=== PATIENT | male | born 1960 | race Caucasian/White ===

== ENCOUNTER 2019-04-22 12:31 | Inpatient (IN) ==
--- OUTSIDE RECORDS SUMMARY | 2019-04-22 12:34 | External Medical Summary | Continuity of Care Document ---
:1960 Author Name Aris Helton Address Unavailable Unavailable , Care Team Providers Name Role Phone Joseph Helton Unavailable [email or web address] Jessy DODD Unavailable Unavailable Unavailable Unavailable Unavailable Problems Chronic reflux esophagitis (530.11) (K21.0) Ankylosing spondylitis (720.0) (M45.9) High risk medication use (V58.69) (Z79.899) Hyperlipidemia (272.4) (E78.5) Lyme disease (088.81) (A69.20) Allergies and Adverse Reactions No Known Drug Allergies (Allergy) Medications Diclofenac Sodium 75 MG Oral Tablet Martina yed Release; TAKE ONE BY MOUTH TWICE DAILY Danie Ruiz Start: 27-Apr-2014 Quantity: 180 Refills: 1 predniSONE 5 MG Oral Tablet; TAKE ONE TABLET BY MOUTH EVERY DAY Danie Ruiz Start: 20-Aug-2012 Quantity: 90 Refills: 0 Cyclobenzaprine HCl - 10 MG Oral Tablet; TAKE 1 TABLET AT BE DTIME NEEDED. Refills: 0 raNITIdine HCl - 300 MG Oral Tablet; TAKE 1 TABLET ENEDINA LY AT BEDTIME. Danie Ruiz Quantity: 90 Refills: 3 Omeprazole 20 MG Oral Capsule Delayed Re lease; TAKE ONE CAPSULE BY MOUTH ONCE DAILY IN THE MORNING 30 MINUTES BEFOREBREAKFAST Danie Ruiz Start: 05-Sep-2013 Quantity: 90 Refills: 1 Procedures Procedures not documented Immunizations Immunizations not documented Family History Mother Family history of Leukemia (V16.6) Status: Active Father Family history of Rheumatoid Arthritis Status: Active Social History - Smoking Status Former smoker Plan of Treatment Planned Observations Planned Goals not documented Results No Known Results Results not documented
[2019-04-22] MEDS ORDERED: HEPARIN (PORCINE) 1000 UNIT/ML 10 ML (CATH LAB USE ONLY) ONE (12:36)
[2019-04-22] MEDS ORDERED: NiCARDipine HCL INJ 2.5 MG/ML 10 ML AMP ONE (12:36)
[2019-04-22] MEDS ORDERED: fentaNYL citrate 100 MCG/2 ML VIAL ONE (12:36)
[2019-04-22] MEDS ORDERED: MIDAZOLAM HCL 1 MG/ML 2ML VIAL ONE ×2 (12:37→13:33)
[2019-04-22] MEDS ORDERED: NITROGLYCERIN/D5W 100MCG/ML 20ML SYR ONE (12:37)
[2019-04-22] MEDS ORDERED: fentaNYL citrate 100 MCG/2 ML VIAL IV STA (12:38)
[2019-04-22] MEDS ORDERED: TICAGRELOR 90 MG TAB PO ONE (12:39)
[2019-04-22] MEDS ORDERED: HEPARIN IV BOLUS 5,000 UNITS in SYRINGE 0 ML IV ONE (12:39)
[2019-04-22] MEDS ORDERED: HEPARIN SOD 5,000 UNIT/0.5 ML VIAL ONE (12:44)
[2019-04-22] MEDS ORDERED: SODIUM CHLORIDE 0.9% 500 ML IV SCH (12:45)
--- NOTE | 2019-04-22 12:58 | XRay Report ---
XR chest 1V portable HISTORY: Atypical Chest pain COMPARISON: None. FINDINGS: The cardiac silhouette is borderline enlarged. The lungs are clear. No pleural effusions. N o pneumothorax. No evidence for pulmonary edema. IMPRESSION: Borderline cardiomegaly. Otherwise, no acute process within the chest. Electronically signed by: Arun Colon M.D. 04/22/2019 12:57 PM
[2019-04-22 13:00] LABS: Basophils # (auto) 0.02 K/uL (0-0.2); Basophils % (auto) 0.2 %; Eosinophils # (auto) 0.04 K/uL (0-0.5); Eosinophils % (auto) 0.5 %; Hematocrit (blood only) 42.2 % (42-52); Hemoglobin 14.5 g/dL (14.0-18.0); Immature Granulocytes # (auto) 0.03 K/uL (0.00-0.02); Immature Granulocytes % (auto) 0.3 %; Lymphocytes # (auto) 1.29 K/uL (1.2-3.4); Lymphocytes % (auto) 14.8 %; Mean Corpuscular Hgb Conc 34.4 g/dL (32-36); Mean Corpuscular Volume 90.4 fL (80-100); Mean Platelet Volume 9.2 fL (7.4-10.4); Monocytes # (auto) 0.65 K/uL (0.11-0.59); Monocytes % (auto) 7.5 %; Neutrophils # (auto) 6.68 K/uL (1.4-6.5); Neutrophils % (auto) 76.7 %; Platelet Count 193 K/uL (130-400); RDW Coefficient of Variation 13.4 % (11.5-14.5); RDW Standard Deviation 43.9 fL (36.4-46.3); Red Blood Count 4.67 M/uL (4.7-6.1); White Blood Count 8.71 K/uL (4.8-10.8)
[2019-04-22] MEDS ORDERED: ATROPINE SULFATE 0.1 MG/ML 10ML SYR IV ONE (13:01)
[2019-04-22 13:14] LABS: INR 1.1 (0.9-1.1); Partial Thromboplastin Ratio 0.8; Partial Thromboplastin Time 21.4 Seconds (21.0-31.0); Prothrombin Time 10.9 Seconds (9.0-12.0)
[2019-04-22] MEDS ORDERED: EPTIFIBATIDE 0.75 MG/ML 75MG VIAL (CATH LAB USE ONLY) ONE (13:14)
[2019-04-22] MEDS ORDERED: EPTIFIBATIDE 2 MG/ML 10 ML VIAL (CATH LAB USE ONLY) ONE (13:14)
[2019-04-22 13:19] LABS: Alanine Aminotransferase 27 U/L (12-78); Albumin Level 3.7 gm/dl (3.4-5.0); Aspartate Aminotransferase 20 U/L (15-37); Blood Urea Nitrogen 13 mg/dl (7-18); Calcium 9.1 mg/dl (8.5-10.1); Carbon Dioxide 19 mmol/L (21-32); Chloride 107 mmol/L (98-107); Creatinine Clr Calc Pharmacy 62.6 ml/min; Est GFR (African American) 60.4; Est GFR (Non-African American) 52.1; Glucose 161 mg/dl (70-99); Lipase 102 U/L (73-393); Potassium 4.6 mmol/L (3.5-5.1); Sodium 143 mmol/L (136-145)
[2019-04-22 13:30] LABS: Albumin Globulin Ratio 1.2 (0.9-2); Alkaline Phosphatase 85 U/L (45-117); Bilirubin,Total 0.7 mg/dl (0.2-1); Creatine Kinase 67 U/L (39-308); Creatine Kinase MB < 1.0 ng/ml (0.5-3.6); Globulin 3.1 gm/dl (2.5-4.0); Total Protein 6.8 gm/dl (6.4-8.2); Troponin I < 0.015 ng/ml (0-0.045)
[2019-04-22] MEDS ORDERED: SODIUM CHLORIDE 0.9% 1000ML 1,000 ML IV SCH (14:30)
[2019-04-22] MEDS ORDERED: EPTIFIBATIDE BOLUS/DRIP IV STA (14:30)
[2019-04-22] MEDS ORDERED: ONDANSETRON INJ 2 MG/ML 2 ML VIAL IV PRN (14:30)
--- NOTE | 2019-04-22 14:39 | Pre Anesthesia Assessment ---
Date of Service April 22, 2019 Pre Sedation Assessment Vital Signs Temp Pulse Resp BP Pulse Ox 04/22/19 12:54 99 04/22/19 12:35 98.2 F 63 36 H 148/97 H 99 Cardiovascular RRR, no murmur, no edema Respiratory normal respiratory effort, lungs clear to auscultation Pre-Sedation Airway Assessment Smoking Status: Former smoker Mallampati Class: III ASA: ASA3 Procedure Planning Contraindications for Sedation: none Current Medications Reviewed: Yes Notes The planned sedation has been discussed with the patient. Informed Consent was obtained. I have identified the patient, determined the appropriateness of sedation and have assessed the patient immediately prior to the procedure. All medicine(s) and interventions are by my order.
--- NOTE | 2019-04-22 14:39 | Post Anesthesia Assessment ---
Date of Service April 22, 2019 Post Sedation Assessment Vital Signs Temp Pulse Resp BP Pulse Ox 04/22/19 12:54 99 04/22/19 12:35 98.2 F 63 36 H 148/97 H 99 Recovery Score Activity: Moves 4 extremities Respiration: Deep Breath/Cough Circulation: +/-20% PreAnes Value Consciousness: Fully Awake Oxygen Saturation: O2 needed for >90% Discharge Sedation Level of Care: Fast Track Phase II Post Sedation Plan On clinical assessment, the patient appears to have tolerated the sedation without complications. Patient is recovering as anticipated. Patient will continue to be monitored by nursing and may be discharged when sedation discharge criteria are met per below protocol. Upon Completions of procedure and additional 15 minutes continue every 5 minute vital signs and the P.A.R. score; then discharge to a Phase I or Fast Track to Phase II per the following guidelines: * Discharge Patient to appropriate Phase II area if PAR is 8 or greater or return to pre- procedure baseline. The post - procedure orders will be as directed. * If PAR score is less than 8 or not return to pre-procedure baseline then patient will follow Phase I monitoring till PAR is reached for Phase II. The Phase I may be done in procedure room or may call to secure a Phase I area. * If naloxone or flumazenil are used for reversal, hold in Phase I for continued monitoring from when last reversal dose was given for a minimum of 60 minutes or longer pending the nurse and/or physician discretion of patient condition before discharge to Phase II. Please call the Sedation Physician to re-evaluate and complete post-note for discharge to Phase II area. Do NOT discharge from procedure sedation or Phase 1 until post- sedation evaluation note is complete by procedure /sedation MD Sedation Discharge Instructions to be given to the patient at discharge to home.
--- NOTE | 2019-04-22 14:51 | Cardiac Catheterization ---
[facility] Data: Executive Consultant Cardiac Status Clinical evaluation leading to the procedure CAD Presenation: STEMI Anginal Classification: CCS IV Heart Failure: No Cardiogenic Shock within 24 Hours: No Cardiac Arrest within 24 Hours: No Imaging Studies Past 6 Months: Yes Stress Studies Past 6 Months: Yes Stress Echocardiogram: Yes - Negative Diagnostic Physicians Name: Leonardo Wolff MD Status: Emergency Closure Device Percutaneous Entry Location: Radial Closure Device: Radial Band Recommendations: PCI without planned CABG PCI Indication: Immediate PCI for STEMI First Noted: First EKG Lesion Segment Name: Mid RCA Culprit Artery: Yes Stenosis Prior to Rx (%): 99 Chronic Total Occlusion: No IVUS: No FFR: No Pre-Procedure MARYAM Flow: 1 Previously Treated Lesion: No Lesion Complexity: Non-High/Non-C Lesion Length (mm): 20 Thrombus Present: Yes Bifurcation Lesion: No Guidewire Across Lesion: Stenosis Post-Procedure (%): 0 Post-Procedure MARYAM Flow: 3 Devices(s) Deployed: Yes Yes Intraprocedure Events Significant Disection: No Perforation: No Cardiac Cath Procedure Full Procedure Date April 22, 2019 Pre-Procedure Diagnosis Pre-Procedure Diagnosis: STEMI AUC Score AUC Score: 9 Post-Procedure Diagnosis Post-Procedure Diagnosis: Severe CAD, Successful PCI and Normal Intracardiac Pressures Procedure(s) Performed Procedure(s) Performed: Coronary Angiography, Left Heart Cath and Drug Eluting Stent Urology Nurse Leonardo Wolff MD Retort Condenser Attendant(s) Loco Estimated Blood Loss Estimated Blood Loss: 15 Medication(s) Medication(s): Clopidogrel, Fentanyl, Heparin, Lidocaine 1%, Nicardipine, Nitroglycerin and Versed Summary of Findings Indication: STEMI/Heart Alert Access: 6 Fr right radial artery Catheters: Ikari 3.5 guide, diagnostic multipurpose Findings: LAD -moderate caliber, 20-30% diffuse proximal disease, small distal vessel with 50 to 60% stenosis after takeoff of small second diagonal. 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 Gives off 3 OM's without significant disease. RCA -dominant, large caliber vessel, subtotal acute occlusion of earlymid RCA with heavy thrombus and MARYAM I distal flow LVEDP -8 -- PCI -- Antithrombotic therapy: Heparin, Integrilin, ticagrelor Procedure: RCA cannulated with Ikari 3.5 guide BMW wire passed across lesion into distal vessel Earlymid RCA lesion predilated with 2.5 compliant balloon Dilated lesion stented with 3.5 x 26 mm [place] drug-eluting stent Stent post-dilated with 3.75 and 4.0 noncompliant balloon Poor distal reflow in the setting of heavy thrombus burden. IC Integrilin and vasodilators administered Post procedure MARYAM 3 flow, stent well expanded with minimal residual stenosis and no apparent cardiac complications. Arterial Closure: TR Summary: 1. Inferior STEMI/subtotal acute earlymid RCA occlusion 2. Small vessel non-culprit coronary artery disease -50 to 60% distal LAD 90% proximal first diagonal (<2 mm). 3. 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 Normal intracardiac filling pressure 5. Successful PCI of proximal to mid RCA with single drug-eluting stent (3.5 x 26 mm Ranjeet; postdilated with 4.0 NC). Recommendations: Admit to ICU for continued monitoring Loaded with ticagrelor 180 mg in laborer tin can Continue Integrilin for 3 hours. Continue dual-antiplatelet therapy for at least 1 year. Trend troponins until peak, Check Echo Uptitrate beta-davis/AHMET as BP allows High-dose statin Consult cardiac Rehab Hemodynamics Rest Ao:: 126/73/96 Final Ao: 85/55/69 LV: 100/8 Recommendations Recommendations: PCI without planned CABG Specimens Specimens: None Radiation Exposure (mGy) 2363 Contrast (mls) 150 Fluids (cc crystalloids) Fluids (cc crystalloids): 650 Drains Drains: None Anesthesia Moderate Procedural Complication(s) None Disposition ICU I attest to the content of the Intraoperative Record and any orders documented therein. Any exceptions are noted below.
--- NOTE | 2019-04-22 15:19 | Consultation ---
Date of Consultation April 22, 2019 Assessment & Plan (1) ST elevation (STEMI) myocardial infarction: Today patient had outpatient exercise stress echo with no reported inducible ischemia and pt able to perform exercise for 10 minutes. After stress test patient was walking down [place] and developed anterior CP, left arm pain, diaphoresis and SOB with EKG in clinic reported to show sinus rhythm with ST elevation inferior leads and leads V3-V6. In clinic had 324mg ASA and 1 SL nitro. From ER pt taken urgently to laboratory technologist. Post op day# 0 S/P PCI, 1 BRIE to RCA by Dr Wolff -Was loaded with Brilinta -Will trend troponin -Echo pending -Lipid panel in am, atorvastatin started -Aspirin daily -Metoprolol tartrate 12.5mg BID started -Lisinopril 5mg started -Cardiology consult (2) Renal insufficiency: Cr: 1.4. Baseline Cr:1.1 with GFR>60 Pt received contrast with cardiac cath -Getting 750ml IVF -Hold home diclofenac -Monitor renal functions -Avoid nephrotoxic agents when possible (3) Elevated glucose: Random glucose: 161 -A1c in am (4) Ankylosing spondylitis: -Continue prednisone -Hold Diclofenac (5) Dyslipidemia: -Lipid panel in am -Atorvastatin started (6) GERD (gastroesophageal reflux disease): -Continue PPI (7) Tobacco use: Chews snuff -Tobacco cessation encouraged DVT Prophylaxis -Ambulate Follows with Dr Dorsey for routine care Pt was seen and care coordinated with Dr Rhodes. See addendum Pt will be followed by Dr Landa starting 04/23/19 Supervising Physician Co-Signing Physician Notes I, Dr. Khoa Rhodes, have seen and examined the patient with physician real estate executive assistant and would like to comment that This is a 58 year old male with inferior wall ST-Elevation Myocardial Infarction (STEMI) Patient is s/p Percutaneous coronary intervention (PCI) of proximal to mid right coronary artery (RCA) with single drug-eluting stent Patient was loaded with with ticagrelor 180 mg in laboratory technologist and to complete Integrilin for 3 hours in total, furthering monitoring in the ICU Other post-cardiac cath recommendations of: dual-antiplatelet therapy for at least 1 year. Trend troponins until peak, Check Echo Uptitrate beta-dvais/AHMET as BP allows High-dose statin Consult cardiac Rehab Discussed alcohol and smoking cessation or reduction with patient Acute kidney injury -on IV fluids Agree with assessment and plan of other health issues as documented by physician real estate executive assistant Physical Exam General: no acute distress Eyes: extraoccular movements intact Lungs: Heart: regular rate, rhythm Abdomen: soft, nontender, positive bowels Extremities: no edema, right wrist with TR band My colleague Dr. Landa will be following the patient as hospitalist physician starting on 04/23/19 History of Present Illness Reason for Consultation: post op medical management Attending Physician: Leonardo Wolff MD History of Present Illness Pt is 58 y/o M with PMH ankylosing spondylitis, GERD, dyslipidemia, tobacco use seen in postop medical management consult s/p PCI and BRIE stent to RCA. Today patient had outpatient exercise stress echo for previous intermittent chest pain and back pain. Stress test with no reported inducible ischemia and pt able to perform exercise for 10 minutes. After stress test patient was walking down home when he developed anterior chest pain, left arm pain, diaphoresis and shortness of breath and had a EKG in clinic reported to show sinus rhythm with ST elevation inferior leads and V3-V6. In clinic patient was given 4 baby aspirin and 1 sublingual nitroglycerin and transferred to ER via EMS. Patient taken urgently to Evaporative Cooler Installer and received 1 BRIE to RCA. Postop patient reports slight chest pain with no further SOB, arm pain, or diaphoresis. Denies fever/chills, N/V/D/C, MEDINA, dizziness, syncope, vision changes, neck pain, orthopnea, palpitations, cough, sore throat, choking, otalgia, rhinorrhea, abdominal pain, paresthesias, weakness, extremity weakness, extremity edema, rashes, urinary symptoms. Allergies Allergy/AdvReac Type Severity Reaction Status Date / Time No Known Drug Allergies Allergy Unknown . Verified 04/22/19 13:10 Home Medications Home Medications Medication Instructions Recorded Confirmed Type cyclobenzaprine 10 mg PO TID PRN 04/22/19 04/22/19 History diclofenac sodium 75 mg PO BID 04/22/19 04/22/19 History omeprazole 20 mg PO QAM 04/22/19 04/22/19 History prednisone 5 mg PO DAILY 04/22/19 04/22/19 History prednisone 10 mg PO UD 04/22/19 04/22/19 History Patient History Medical History Tobacco use (Chronic) Dyslipidemia (Chronic) GERD (gastroesophageal reflux disease) (Chronic) Ankylosing spondylitis (Chronic) Surgical History No pertinent past surgical history Family History Mother Leukemia Father Coronary heart disease [place] age 62 Social History Preferred Language: Yemeni Communication Ability: Effective Beliefs That Will Affect Care: None Current Living Situation: Spouse Other Information That Helps Us Care for You: No Feels Safe at Home: Yes Safety Concerns: Feels Safe At This Time Smoking Status: Former smoker Tobacco Type: smokeless tobacco ; Cigarettes Per Day: Smoked 3ppd x 11 years, quit in ; Do You Dip or Chew Tobacco: Yes (5 cans a week) ; Second Hand Exposure: No ; Hx Alcohol Use: Yes (1 case of beer per weekend, ) Alcohol type: beer Hx Substance Use: No Review of Systems Review of Systems: All systems reviewed & are unremarkable except as noted in HPI & below Physical Exam Physical Exam: General: no distress, WDWN Head: normocephalic, atraumatic Eyes: PERRL, EOM's intact, conjunctiva non-injected, anicteric ENT: normal inspection external ears, nose, mucous membranes moist Neck: supple, trachea midline Lungs: clear, no respiratory distress, no wheezing/rhonchi/rales CV: RRR, no murmur, no pretibial edema Abd: normal BS, soft, non-tender Ext: no cyanosis, no calf tenderness; right wrist with radial compression band in place, ROM fingers intact, fingers with sensation to light touch intact Neuro: A&O x 3, no focal deficits noted, normal affect Skin: warm, dry Results & Data Vital Signs (Past 12 Hours) Vital Signs Temp Pulse Pulse Resp BP BP Pulse Ox 04/22/19 14:40 52 L 14 04/22/19 14:39 36.7 C 59 L 18 96/65 L 98 04/22/19 14:30 36.7 C 51 L 58 L 26 H 96/65 L 95 04/22/19 14:20 51 L 14 04/22/19 14:13 50 L 18 96/65 L 04/22/19 14:10 54 L 14 04/22/19 14:09 52 L 5 L 04/22/19 12:54 99 04/22/19 12:41 65 18 100 04/22/19 12:38 71 24 144/95 H 100 04/22/19 12:35 36.8 C 63 36 H 148/97 H 99 Laboratory Results Short CBC 04/22/19 Range/Units 12:41 WBC 8.71 (4.8-10.8) K/uL Hgb 14.5 (14.0-18.0) g/dL Hct 42.2 (42-52) % Plt Count 193 (130-400) K/uL BMP 04/22/19 12:41 Sodium 143 Potassium 4.6 Chloride 107 Carbon Dioxide 19 L BUN 13 Creatinine 1.48 H Glucose 161 H Calcium 9.1 Cardiac Enzymes 04/22/19 Range/Units 12:41 Total Creatine Kinase 67 (39-308) U/L CK-MB (CK-2) < 1.0 (0.5-3.6) ng/ml Troponin I < 0.015 (0-0.045) ng/ml Liver Function 04/22/19 Range/Units 12:41 Total Bilirubin 0.7 (0.2-1) mg/dl AST 20 (15-37) U/L ALT 27 (12-78) U/L Alkaline Phosphatase 85 (45-117) U/L Albumin 3.7 (3.4-5.0) gm/dl Diagnostic Findings CXR: IMPRESSION: Borderline cardiomegaly. Otherwise, no acute process within the chest. ECG Rhythm: sinus rhythm Findings: + ST elevation (II, III, aVF, V3-V6) (1) ST elevation (STEMI) myocardial infarction Involved coronary artery: unspecified coronary artery Qualified Code(s): I21.3 - ST elevation (STEMI) myocardial infarction of unspecified site
[2019-04-22] MEDS: EPTIFIBATIDE 75 MG/100 ML VIAL IV SCH ×2 (15:24→18:18)
[2019-04-22] MEDS ORDERED: ICU PROTOCOL FOR HYPERGLYCEMIA PRN (15:32)
[2019-04-22] MEDS ORDERED: PERFLUTREN LIPID MICROSPHERE (DEFINITY) IV ONE (15:47)
--- NOTE | 2019-04-22 15:48 | Critical Care Consultation ---
Date of Consultation April 22, 2019 Assessment & Plan (1) ST elevation (STEMI) myocardial infarction: Stated post drug-eluting stent in the RCA Continue with aspirin and Brilinta. Monitor for any signs of bleeding. Cardiology on board. Monitor EKGs. Present on Admission?: Yes (2) S/P right coronary artery (RCA) stent placement: (3) Alcohol abuse: Patient is a heavy drinker. Counseling was given to stop drinking. (4) GERD (gastroesophageal reflux disease): Continue with pantoprazole. (5) Renal insufficiency: Creatinine 1.48 to the time of presentation. Monitor BUN and creatinine Strict in and out History of Present Illness Reason for Consultation: STEMI Attending Physician: Leonardo Wolff MD History of Present Illness 58-year-old male with past medical history of ankylosing spondylitis taking prednisone 5 mg for the last approximately 10 to 15 years, daily alcohol use comes to the hospital from physician's office where he had echo stress test done which apparently was normal but after the test he started having chest pain diaphoresis shortness of breath. Was found to have ST elevation in inferior leads. Patient went to Manufacturer Representative and drug-eluting stent was placed in RCA. Patient is seen status post cardiac cath in the ICU. Denies any shortness of breath, no dizziness, no headache, no nausea, no vomiting. Chest pain is improved. No diarrhea, no hematuria, no hematochezia, no dysuria. No fever or chills. Family history: Leukemia in mother, heart problems in father Social history: Greater than 38-[id number]-pihr smoking history quit approximately 34 years ago, heavy alcohol use 6 cans of beer approximately other daily basis, denies any illicit drug use Allergies Allergy/AdvReac Type Severity Reaction Status Date / Time No Known Drug Allergies Allergy Unknown . Verified 04/22/19 13:10 Home Medications Home Medications Medication Instructions Recorded Confirmed Type cyclobenzaprine 10 mg PO TID PRN 04/22/19 04/22/19 History diclofenac sodium 75 mg PO BID 04/22/19 04/22/19 History omeprazole 20 mg PO QAM 04/22/19 04/22/19 History prednisone 5 mg PO DAILY 04/22/19 04/22/19 History prednisone 10 mg PO UD 04/22/19 04/22/19 History Patient History Medical History Tobacco use (Chronic) Dyslipidemia (Chronic) GERD (gastroesophageal reflux disease) (Chronic) Ankylosing spondylitis (Chronic) Surgical History No pertinent past surgical history Family History Mother Leukemia Father Coronary heart disease [place] age 62 Social History Preferred Language: Somali Communication Ability: Effective Beliefs That Will Affect Care: None Current Living Situation: Spouse Other Information That Helps Us Care for You: No Feels Safe at Home: Yes Safety Concerns: Feels Safe At This Time Smoking Status: Former smoker Tobacco Type: smokeless tobacco ; Cigarettes Per Day: Smoked 3ppd x 11 years, quit in ; Do You Dip or Chew Tobacco: Yes (5 cans a week) ; Second Hand Exposure: No ; Hx Alcohol Use: Yes (1 case of beer per weekend, sun-sun) Alcohol type: beer Hx Substance Use: No Review of Systems Review of Systems: All systems reviewed & are unremarkable except as noted in HPI & below Physical Exam Physical Exam: Constitutional: No acute distress HEENT: EOMI, PERRLA Respiratory system: Good air entry bilaterally, no wheeze, no rhonchi, no crackles CVS: S1-S2 positive, no murmurs or gallops, bradycardia Abdomen: Soft, nontender, nondistended, positive bowel sounds x4 Extremities: +2 pulses bilaterally radialis/ dorsalis pedis, no edema, no cyanosis Neuro: Awake alert oriented x3 Psych: Normal mood and affect G/U: No Light Lymphatic: no cervical or axillary lymphadenopathy Results & Data Vital Signs (Past 12 Hours) Vital Signs Temp Pulse Pulse Resp BP BP Pulse Ox 04/22/19 14:40 52 L 14 04/22/19 14:39 36.7 C 59 L 18 96/65 L 98 04/22/19 14:30 36.7 C 51 L 58 L 26 H 96/65 L 95 04/22/19 14:20 51 L 14 04/22/19 14:13 50 L 18 96/65 L 04/22/19 14:10 54 L 14 04/22/19 14:09 52 L 5 L 04/22/19 12:54 99 04/22/19 12:41 65 18 100 04/22/19 12:38 71 24 144/95 H 100 04/22/19 12:35 36.8 C 63 36 H 148/97 H 99 Laboratory Results 04/22/19 12:41 04/22/19 12:41 PG Care Time/CCT Total # of Minutes Spent Total Time Spent with Patient: Total time spent is greater than 50% in coordination of care (as documented) at patient's floor/unit and/or counseling patient: (1) ST elevation (STEMI) myocardial infarction Involved coronary artery: unspecified coronary artery Qualified Code(s): I21.3 - ST elevation (STEMI) myocardial infarction of unspecified site
--- NOTE | 2019-04-22 16:17 | Cardiology Consultation ---
Date of Consultation April 22, 2019 Assessment & Plan (1) ST elevation (STEMI) myocardial infarction: (2) S/P right coronary artery (RCA) stent placement: (3) Dyslipidemia, goal LDL below 70: Continue dual antiplatelet therapy for minimum of 6 months uninterrupted post percutaneous intervention. High intensity statin therapy added. Repeat fasting lipid panel ordered for a.m. Continue low-dose beta-davis therapy as well. TR band will be removed slowly via nursing staff over the next 90 minutes. Continue observation in the intensive care unit overnight. Consider referral to cardiac rehab at time of discharge. History of Present Illness Reason for Consultation: STEMI s/p PCI RCA Requesting Physician: Samantha ANAYA Attending Physician: Leonardo Wolff MD History of Present Illness 58-year-old patient presented for outpatient stress testing today as ordered by primary care provider. Patient has no past history of cardiac disease. He exercised on a Franck protocol completing 10 minutes of exercise with no symptoms suggestive of angina. There is no evidence of inducible ischemia. After completion of stress testing patient was in the waiting room at [facility]. He developed chest discomfort, diaphoresis, and shortness of b reath. He was evaluated in the clinic with repeat ECG demonstrating inferior lateral ST elevations. He was transferred via EMS to [facility] for urgent cardiac catheterization. Cardiac catheterization demonstrated severe proximal RCA stenosis. A drug- eluting stent was implanted without complication. Patient tolerated procedure well. Currently resting comfortably intensive care unit. Telemetry demonstrates sinus bradycardia. Hemodynamics are stable. Denies any chest discomfort at this time. Repeat echocardiogram pending. Allergies Allergy/AdvReac Type Severity Reaction Status Date / Time No Known Drug Allergies Allergy Unknown . Verified 04/22/19 13:10 Home Medications Home Medications Medication Instructions Recorded Confirmed Type cyclobenzaprine 10 mg PO TID PRN 04/22/19 04/22/19 History diclofenac sodium 75 mg PO BID 04/22/19 04/22/19 History omeprazole 20 mg PO QAM 04/22/19 04/22/19 History prednisone 5 mg PO DAILY 04/22/19 04/22/19 History prednisone 10 mg PO UD 04/22/19 04/22/19 History Patient History Medical History Tobacco use (Chronic) Dyslipidemia (Chronic) GERD (gastroesophageal reflux disease) (Chronic) Ankylosing spondylitis (Chronic) Surgical History No pertinent past surgical history Family History Mother Leukemia Father Coronary heart disease [place] age 62 Social History Preferred Language: Telugu Communication Ability: Effective Beliefs That Will Affect Care: None Current Living Situation: Spouse Other Information That Helps Us Care for You: No Feels Safe at Home: Yes Safety Concerns: Feels Safe At This Time Smoking Status: Former smoker Tobacco Type: smokeless tobacco ; Cigarettes Per Day: Smoked 3ppd x 11 years, quit in ; Do You Dip or Chew Tobacco: Yes (5 cans a week) ; Second Hand Exposure: No ; Hx Alcohol Use: Yes (1 case of beer per weekend, ) Alcohol type: beer Hx Substance Use: No Review of Systems Review of Systems: All systems reviewed & are unremarkable except as noted in HPI & below Physical Exam Physical Exam: General: NAD, AAO x3, well nourished. HEENT: Normocephalic. Atraumatic. Conjunctiva pink, no scleral icterus. Neck: No carotid bruits, the carotid upstrokes are brisk. No JVD. No HJR Heart: Regular normal S-1 and S-2 no S-3 or S-4 gallop. No murmurs or rub appreciated. PMI is not displaced. No RV heave. Lungs: Clear bilateral without rales , rhonchi, or wheeze. Abdomen: Normal bowel sounds. Soft. Nontender. No masses or organomegaly. No abdominal bruits. Extremities: No clubbing, cyanosis, or edema. Pulses: radial=2/4, Dorsalis pedis =2/4, posterior tibial=2/4. Neuro: Cranial nerves grossly intact. No focal motor deficit. Results & Data Vital Signs (Past 12 Hours) Vital Signs Temp Pulse Pulse Resp BP BP Pulse Ox 04/22/19 16:00 53 L 16 108/80 99 04/22/19 15:45 52 L 17 116/76 98 04/22/19 15:30 50 L 21 104/74 99 04/22/19 15:15 53 L 22 101/77 96 04/22/19 15:00 60 14 109/86 04/22/19 14:49 51 L 18 120/79 04/22/19 14:45 59 L 16 04/22/19 14:40 52 L 14 04/22/19 14:39 36.7 C 59 L 18 96/65 L 98 04/22/19 14:30 36.7 C 51 L 58 L 26 H 96/65 L 95 04/22/19 14:20 51 L 14 04/22/19 14:13 50 L 18 96/65 L 04/22/19 14:10 54 L 14 04/22/19 14:09 52 L 5 L 04/22/19 12:54 99 04/22/19 12:41 65 18 100 04/22/19 12:38 71 24 144/95 H 100 04/22/19 12:35 36.8 C 63 36 H 148/97 H 99 Laboratory Results Laboratory Results - last 24 hr 04/22/19 04/22/19 04/22/19 12:41 12:41 12:41 WBC 8.71 RBC 4.67 L Hgb 14.5 Hct 42.2 MCV 90.4 MCH 31.0 MCHC 34.4 RDW Std Deviation 43.9 RDW Coeff of [place] 13.4 Plt Count 193 MPV 9.2 Immature Gran % (Auto) 0.3 Neut % (Auto) 76.7 Lymph % (Auto) 14.8 [place] % (Auto) 7.5 Eos % (Auto) 0.5 Baso % (Auto) 0.2 Immature Gran # (Auto) 0.03 H Neut # (Auto) 6.68 H Lymph # (Auto) 1.29 [place] # (Auto) 0.65 H Eos # (Auto) 0.04 Baso # (Auto) 0.02 PT 10.9 INR 1.1 APTT 21.4 PTT Ratio 0.8 Sodium Potassium Chloride Carbon Dioxide Anion Gap BUN Creatinine Est Cr Clr Drug Dosing Est GFR ( Amer) Est GFR (Non-Af Amer) BUN/Creatinine Ratio Glucose POC Glucose Calcium Magnesium Total Bilirubin AST ALT Alkaline Phosphatase Total Creatine Kinase CK-MB (CK-2) CK/CKMB % Calc Troponin I Total Protein Albumin Globulin Albumin/Globulin Ratio Lipase TSH Nasal Screen MRSA (PCR) Blood Type O Negative Antibody Screen NEGATIVE 04/22/19 04/22/19 04/22/19 12:41 14:15 14:43 WBC RBC Hgb Hct MCV MCH MCHC RDW Std Deviation RDW Coeff of [place] Plt Count MPV Immature Gran % (Auto) Neut % (Auto) Lymph % (Auto) [place] % (Auto) Eos % (Auto) Baso % (Auto) Immature Gran # (Auto) Neut # (Auto) Lymph # (Auto) [place] # (Auto) Eos # (Auto) Baso # (Auto) PT INR APTT PTT Ratio Sodium 143 Potassium 4.6 Chloride 107 Carbon Dioxide 19 L Anion Gap 17.0 H BUN 13 Creatinine 1.48 H Est Cr Clr Drug Dosing 62.6 Est GFR ( Amer) 60.4 Est GFR (Non-Af Amer) 52.1 BUN/Creatinine Ratio 9.0 L Glucose 161 H POC Glucose 112 H Calcium 9.1 Magnesium 2.0 Total Bilirubin 0.7 AST 20 ALT 27 Alkaline Phosphatase 85 Total Creatine Kinase 67 CK-MB (CK-2) < 1.0 CK/CKMB % Calc TNP Troponin I < 0.015 Total Protein 6.8 Albumin 3.7 Globulin 3.1 Albumin/Globulin Ratio 1.2 Lipase 102 TSH 1.150 Nasal Screen MRSA (PCR) Pending Blood Type Antibody Screen (1) ST elevation (STEMI) myocardial infarction Involved coronary artery: unspecified coronary artery Qualified Code(s): I21.3 - ST elevation (STEMI) myocardial infarction of unspecified site
[2019-04-22] MEDS: TICAGRELOR 90 MG TAB PO SCH (20:05)
[2019-04-22] MEDS: METOPROLOL TARTRATE 25 MG TAB PO SCH (20:05)
--- NOTE | 2019-04-22 20:23 | Emergency Department Note ---
Entered by Gudelia García acting as a scribe for Constantin Winston MD History of Present Illness General Chief complaint: Heart Alert Time Seen by Provider: 04/22/19 12:35 Source: patient and EMS History of Present Illness Provider complaint: STEMI Onset (ago): hour(s) less than 1 Location: chest Radiation: non-radiation Pain Consistency: + constant Maximum Pain Intensity: 7 Relieved By: + none Exacerbated By: + movement Associated symptoms: + chest pain, + nausea/vomiting, + shortness of breath and + other (chest pain ) The patient is a 58 y/o male who presents to the emergency department via EMS for evaluation of a constant STEMI prior to arrival. EMS notes that patient had completed a stress test without issue but following had shortness of breath, nausea, vomiting, and chest pain. The patient states he has a 7/10 chest pain. EKG demonstrates ZENA inferiorly and laterally. EMS notes he had 4 nitroglycerins prior to arrival with a 144/[address] ates that the pain in his left chest. He notes he is short of breath as well but has not vomited since at [facility]. He denies any other symptoms. Home Medications Home Medications Medication Instructions Recorded Confirmed Type cyclobenzaprine 10 mg PO TID PRN 04/22/19 04/22/19 History diclofenac sodium 75 mg PO BID 04/22/19 04/22/19 History omeprazole 20 mg PO QAM 04/22/19 04/22/19 History prednisone 5 mg PO DAILY 04/22/19 04/22/19 History prednisone 10 mg PO UD 04/22/19 04/22/19 History Allergies Allergy/AdvReac Type Severity Reaction Status Date / Time No Known Drug Allergies Allergy Unknown . Verified 04/22/19 13:10 Past Med/Surg History Medical History Tobacco use (Chronic) Dyslipidemia (Chronic) GERD (gastroesophageal reflux disease) (Chronic) Ankylosing spondylitis (Chronic) Surgical History No pertinent past surgical history Family History Mother Leukemia Father Coronary heart disease [place] age 62 Social History Preferred Language: Romansh Communication Ability: Effective Beliefs That Will Affect Care: None Current Living Situation: Spouse Other Information That Helps Us Care for You: No Feels Safe at Home: Yes Safety Concerns: Feels Safe At This Time Smoking Status: Former smoker Tobacco Type: smokeless tobacco ; Cigarettes Per Day: Smoked 3ppd x 11 years, quit in ; Do You Dip or Chew Tobacco: Yes (5 cans a week) ; Second Hand Exposure: No ; Hx Alcohol Use: Yes (1 case of beer per weekend, sun-sun) Alcohol type: beer Hx Substance Use: No Review of Systems See HPI for pertinent positives & negatives. and A total of 10 systems reviewed and were otherwise negative Physical Exam Vital Signs Vital Signs - 24 hr 04/22/19 12:35 04/22/19 12:38 04/22/19 12:41 Temperature 36.8 C Temperature Source Oral Sepsis Recent Fever Within 48 Hours No Sepsis New/Unexplained Change in Mental Status No Sepsis Action Taken by Nursing No Action Required Pulse Rate 63 71 65 Pulse Rate from SpO2 Sensor 70 65 Pulse Rhythm Regular Pulse Strength Normal Respiratory Rate 36 H 24 18 Respiratory Effort / Characteristics Non-Labored Spontaneous Respiratory Depth Normal Respiratory Pattern Regular Blood Pressure 148/97 H 144/95 H Blood Pressure Mean 114 111 Blood Pressure Position Sitting Pulse Oximetry 99 100 100 Oxygen Delivery Method Nasal Cannula Oxygen Flow Rate 2 04/22/19 12:54 Temperature Temperature Source Sepsis Recent Fever Within 48 Hours Sepsis New/Unexplained Change in Mental Status Sepsis Action Taken by Nursing Pulse Rate Pulse Rate from SpO2 Sensor Pulse Rhythm Pulse Strength Respiratory Rate Respiratory Effort / Characteristics Respiratory Depth Respiratory Pattern Blood Pressure Blood Pressure Mean Blood Pressure Position Pulse Oximetry 99 Oxygen Delivery Method Room Air Oxygen Flow Rate 2 GENERAL: Awake, alert, uncomfortable-appearing, in mild distress HENT: Normocephalic, atraumatic. Oropharynx with dry mucous membranes and otherwise unremarkable. EYES: Normal conjunctiva. Sclera non-icteric. NECK: Supple. No nuchal rigidity. FROM. No JVD. RESPIRATORY: Clear to auscultation bilaterally CARDIAC: Regular rate, normal rhythm. Extremities warm and well perfused. Pulses equal. ABDOMEN: Soft, non-distended. No tenderness to palpation. No rebound or guarding. No masses. RECTAL: Deferred. MUSCULOSKELETAL: Chest examination reveals no tenderness. The back is symmetrical on inspection without obvious abnormality. There is no CVA tenderness to palpation. No joint edema. LOWER EXTREMITIES: Calves are equal size bilaterally and non-tender. No edema. No discoloration. NEURO: Normal sensorium. No sensory or motor deficits noted. SKIN: No rash or jaundice noted. Course 1236: Past medical records reviewed. The patient was evaluated in room B01. A complete history and physical exam was performed. 1251: The patient was transferred to the gold leaf laborer. 1309: I spoke with Maryan Hawkins. She will evaluate for further management. Administered Medications Metoprolol Tartrate (Lopressor) 12.[address] Stop: 05/22/19 20:59 Last Admin: 04/22/19 20:05 Dose: 12.5 mg Documented by: [id number] Ticagrelor (Brilinta) [address] Stop: 05/22/19 20:59 Last Admin: 04/22/19 20:05 Dose: 90 mg Documented by: [id number] Discontinued Medications Atropine Sulfate (Atropine Sulfate) Confirm Administered Dose 1 mg IV .STK-MED ONE Stop: 04/22/19 13:02 Last Admin: 04/22/19 15:01 Dose: Not Given Documented by: [id number] Eptifibatide (Integrilin (Gasoline Catalyst Operator Use Only)) Confirm Administered Dose 20 mg .ROUTE .STK-MED ONE Stop: 04/22/19 13:15 Last Admin: 04/22/19 15:01 Dose: Not Given Documented by: [id number] Eptifibatide (Integrilin (Gasoline Catalyst Operator Use Only)) Confirm Administered Dose 75 mg .ROUTE .STK-MED ONE Stop: 04/22/19 13:15 Last Admin: 04/22/19 15:02 Dose: Not Given Documented by: [id number] Fentanyl Citrate (Fentanyl Citrate) Confirm Administered Dose 100 mcg .ROUTE .STK-MED ONE Stop: 04/22/19 12:37 Last Admin: 04/22/19 12:52 Dose: 50 mcg Documented by: [id number] Fentanyl Citrate (Fentanyl Citrate) 50 mcg IV NOW [facility] Stop: 04/22/19 12:39 Last Admin: 04/22/19 12:53 Dose: Not Given Documented by: [id number] Heparin Sodium (Porcine) (Heparin Iv Bolus (Gasoline Catalyst Operator Use Only)) Confirm Administered Dose 10,000 units .ROUTE .STK-MED ONE Stop: 04/22/19 12:37 Last Admin: 04/22/19 15:00 Dose: Not Given Documented by: [id number] Heparin Sodium (Porcine) (Heparin Sodium (Porcine)) Confirm Administered Dose 5,000 units .ROUTE .STK-MED ONE Stop: 04/22/19 12:45 Last Admin: 04/22/19 12:53 Dose: Not Given Documented by: [id number] Heparin Sodium/Sodium Chloride (Heparin/Nss 1000 Unit/500ml Flush Bag) Confirm Administered Dose 3,000 units IV .STK-MED ONE Stop: 04/22/19 12:38 Last Admin: 04/22/19 15:00 Dose: Not Given Documented by: [id number] Sodium Chloride (Nss) 500 mls @ 999 mls/hr IV .Q31M [facility] Stop: 04/22/19 13:15 Last Infusion: 04/22/19 15:26 Dose: 0 mls/hr Documented by: [id number] Admin: 04/22/19 12:53 Dose: 999 mls/hr Documented by: [id number] Heparin Sodium (Porcine) 5,000 (units/ Syringe) 5 mls @ 10 mls/min IV ONE ONE Stop: 04/22/19 12:40 Last Admin: 04/22/19 12:54 Dose: Not Given Documented by: [id number] Sodium Chloride (Nss 1000ml) 1,000 mls @ 100 mls/hr IV .Q10H [facility] Stop: 04/22/19 21:59 Last Admin: 04/22/19 15:24 Dose: 100 mls/hr Documented by: [id number] Eptifibatide (Integrilin) 75 mg in 100 mls @ 14.784 mls/hr IV .Q6H46M [facility]; Protocol Stop: 05/22/19 14:29 Last Infusion: 04/22/19 20:01 Dose: 0 mcg/kg/min, 0 mls/hr Documented by: [id number] Cosigned by: [id number] Admin: 04/22/19 18:18 Dose: 2 mcg/kg/min, 14.8 mls/hr Documented by: [id number] Cosigned by: [id number] Infusion: 04/22/19 18:18 Dose: 2 mcg/kg/min, 14.8 mls/hr Documented by: [id number] Cosigned by: [id number] Admin: 04/22/19 15:24 Dose: 2 mcg/kg/min, 14.8 mls/hr Documented by: [id number] Cosigned by: [id number] Midazolam HCl (Versed) Confirm Administered Dose 2 mg .ROUTE .STK-MED ONE Stop: 04/22/19 12:38 Last Admin: 04/22/19 15:01 Dose: Not Given Documented by: [id number] Midazolam HCl (Versed) Confirm Administered Dose 2 mg .ROUTE .STK-MED ONE Stop: 04/22/19 13:34 Last Admin: 04/22/19 15:02 Dose: Not Given Documented by: [id number] Nicardipine HCl (Cardene) Confirm Administered Dose 25 mg .ROUTE .STK-MED ONE Stop: 04/22/19 12:37 Last Admin: 04/22/19 15:00 Dose: Not Given Documented by: [id number] Nitroglycerin/Dextrose (Nitroglycerin/D5w 100 Mcg/Ml 20ml Syringe) Confirm Administered Dose 2,000 mcg .ROUTE .STK-MED ONE Stop: 04/22/19 12:38 Last Admin: 04/22/19 15:01 Dose: Not Given Documented by: [id number] Perflutren Lipid Microsphere (Definity) 2 ml IV ONCE ONE Stop: 04/22/19 15:48 Last Admin: 04/22/19 15:48 Dose: 2 ml Documented by: [id number] Ticagrelor (Brilinta) 180 mg PO ONE ONE Stop: 04/22/19 12:40 Last Admin: 04/22/19 12:53 Dose: Not Given Documented by: [id number] Medical Decision Making Differential Diagnosis the differential was considered includes acute myocardial infarction, acute coronary syndrome, myocarditis, pericarditis, pericardial effusions /tamponad, esophageal perforation, thoracic aortic dissection, pulmonary embolism, pneumonia, pneumothorax, pancreatitis, shingles, acute cholecystitis, perforated abdominal viscus. Medical Records Attestation: I reviewed the patient's medical records. Home Medications Current Medication List: was personally reviewed by me Laboratory Data Attestation: I reviewed the patient's lab results. Result diagrams: 04/22/19 12:41 04/22/19 12:41 Lab Results 04/22/19 04/22/19 04/22/19 Range/Units 12:41 12:41 12:41 WBC 8.71 (4.8-10.8) K/uL RBC 4.67 L (4.7-6.1) M/uL Hgb 14.5 (14.0-18.0) g/dL Hct 42.2 (42-52) % MCV 90.4 (80-100) fL MCH 31.0 (25-34) pg MCHC 34.4 (32-36) g/dL RDW Std Deviation 43.9 (36.4-46.3) fL RDW Coeff of [place] 13.4 (11.5-14.5) % Plt Count 193 (130-400) K/uL MPV 9.2 (7.4-10.4) fL Immature Gran % (Auto) 0.3 % Neut % (Auto) 76.7 % Lymph % (Auto) 14.8 % [place] % (Auto) 7.5 % Eos % (Auto) 0.5 % Baso % (Auto) 0.2 % Immature Gran # (Auto) 0.03 H (0.00-0.02) K/uL Neut # (Auto) 6.68 H (1.4-6.5) K/uL Lymph # (Auto) 1.29 (1.2-3.4) K/uL [place] # (Auto) 0.65 H (0.11-0.59) K/uL Eos # (Auto) 0.04 (0-0.5) K/uL Baso # (Auto) 0.02 (0-0.2) K/uL PT 10.9 (9.0-12.0) Seconds INR 1.1 (0.9-1.1) APTT 21.4 (21.0-31.0) Seconds PTT Ratio 0.8 Sodium (136-145) mmol/L Potassium (3.5-5.1) mmol/L Chloride (98-107) mmol/L Carbon Dioxide (21-32) mmol/L Anion Gap (3-11) BUN (7-18) mg/dl Creatinine (0.6-1.4) mg/dl Est Cr Clr Drug Dosing ml/min Est GFR ( Amer) Est GFR (Non-Af Amer) BUN/Creatinine Ratio (10-20) Glucose (70-99) mg/dl Calcium (8.5-10.1) mg/dl Magnesium (1.8-2.4) mg/dl Total Bilirubin (0.2-1) mg/dl AST (15-37) U/L ALT (12-78) U/L Alkaline Phosphatase (45-117) U/L Total Creatine Kinase (39-308) U/L CK-MB (CK-2) (0.5-3.6) ng/ml CK/CKMB % Calc Troponin I (0-0.045) ng/ml Total Protein (6.4-8.2) gm/dl Albumin (3.4-5.0) gm/dl Globulin (2.5-4.0) gm/dl Albumin/Globulin Ratio (0.9-2) Lipase (73-393) U/L TSH (0.300-4.500) uIu/ml Blood Type O Negative Antibody Screen NEGATIVE 04/22/19 Range/Units 12:41 WBC (4.8-10.8) K/uL RBC (4.7-6.1) M/uL Hgb (14.0-18.0) g/dL Hct (42-52) % MCV (80-100) fL MCH (25-34) pg MCHC (32-36) g/dL RDW Std Deviation (36.4-46.3) fL RDW Coeff of [place] (11.5-14.5) % Plt Count (130-400) K/uL MPV (7.4-10.4) fL Immature Gran % (Auto) % Neut % (Auto) % Lymph % (Auto) % [place] % (Auto) % Eos % (Auto) % Baso % (Auto) % Immature Gran # (Auto) (0.00-0.02) K/uL Neut # (Auto) (1.4-6.5) K/uL Lymph # (Auto) (1.2-3.4) K/uL [place] # (Auto) (0.11-0.59) K/uL Eos # (Auto) (0-0.5) K/uL Baso # (Auto) (0-0.2) K/uL PT (9.0-12.0) Seconds INR (0.9-1.1) APTT (21.0-31.0) Seconds PTT Ratio Sodium 143 (136-145) mmol/L Potassium 4.6 (3.5-5.1) mmol/L Chloride 107 (98-107) mmol/L Carbon Dioxide 19 L (21-32) mmol/L Anion Gap 17.0 H (3-11) BUN 13 (7-18) mg/dl Creatinine 1.48 H (0.6-1.4) mg/dl Est Cr Clr Drug Dosing 62.6 ml/min Est GFR ( Amer) 60.4 Est GFR (Non-Af Amer) 52.1 BUN/Creatinine Ratio 9.0 L (10-20) Glucose 161 H (70-99) mg/dl Calcium 9.1 (8.5-10.1) mg/dl Magnesium 2.0 (1.8-2.4) mg/dl Total Bilirubin 0.7 (0.2-1) mg/dl AST 20 (15-37) U/L ALT 27 (12-78) U/L Alkaline Phosphatase 85 (45-117) U/L Total Creatine Kinase 67 (39-308) U/L CK-MB (CK-2) < 1.0 (0.5-3.6) ng/ml CK/CKMB % Calc TNP Troponin I < 0.015 (0-0.045) ng/ml Total Protein 6.8 (6.4-8.2) gm/dl Albumin 3.7 (3.4-5.0) gm/dl Globulin 3.1 (2.5-4.0) gm/dl Albumin/Globulin Ratio 1.2 (0.9-2) Lipase 102 (73-393) U/L TSH 1.150 (0.300-4.500) uIu/ml Blood Type Antibody Screen Imaging Data Radiologist's Impression: Radiology results as stated below per my review and the radiologist's interpretation: XR chest 1V portable HISTORY: Atypical Chest pain COMPARISON: None. FINDINGS: The cardiac silhouette is borderline enlarged. The lungs are clear. No pleural effusions. No pneumothorax. No evidence for pulmonary edema. IMPRESSION: Borderline cardiomegaly. Otherwise, no acute process within the chest. Electronically signed by: Arun Colon M.D. 04/22/2019 12:57 PM ECG Data Indication: other (STEMI) Rate (beats per minute): 71 Rhythm: normal sinus Findings: + ST elevation (inferior and lateral lead); no ectopy Blood Pressure Blood Pressure Findings: Elevated blood pressure Blood Pressure Disposition: further management by hospitalist MDM Narrative The patient is a pleasant 58-year-old gentleman who presents emergency department with acute onset chest pain and diaphoresis with EKG showing inferior and lateral ST elevation RI occurs in the setting of having outpatient stress echo performed which was initially unremarkable however upon walking back from his testing developed chest pain. He was given aspirin and nitroglycerin prior to arrival. He did have brief nausea and dizziness after this but recovered after IV fluids. I did discuss the case with Dr. Espinoza from the [facility] cardiology clinic prior to arrival and subsequently with Dr. Wolff, interventional cardiology. Heart alert was activated upon EMS report prior to arrival. On arrival patient is uncomfortable, in mild distress, though AFVSS. He was ordered for fentanyl for pain and NS for preload support. Dr. Wolff at the bedside who explained plan for catheterization. Chest x-ray was performed and did not show any significant mediastinal widening. Patient was initially ordered for Brilinta and heparin bolus however unable to be administered prior to transfer therefore administration deferred to Gasoline Catalyst Operator. Lab results after transfer to gold leaf laborer. WBC, H/H, platelets wnl. Bicarb 19, Agap 17 with Cr. 1.48 without recent valus for comparison. LFTs and electrolytes unremarkable. Initial troponin negative. Impression & Plan ST elevation (STEMI) myocardial infarction, Acute renal insufficiency Discharge Plan Visit Data *Final* Discharge Date/Time: 04/22/19 12:56 Chief Complaint: Heart Alert ED Provider: Constantin Winston Discharge Problem: ST elevation (STEMI) myocardial infarction, Acute renal insufficiency Patient Disposition: Being Evaluated by Hospitalist Discharge Instructions Interventions: ED Discharge Assessment Last Done: 04/22/19 12:56 Discharge Problem: ST elevation (STEMI) myocardial infarction Qualifiers: Involved coronary artery: unspecified coronary artery Qualified Code(s): I21.3 - ST elevation (STEMI) myocardial infarction of unspecified site The joeibe's documentation has been prepared under my direction and personally reviewed by me in its entirety. I confirm that the note above accurately reflects all work, treatment, procedures, and medical decision making performed by me.
[2019-04-23] MEDS: ACETAMINOPHEN 325 MG TAB PO PRN ×3 (01:18→21:14)
[2019-04-23 02:01] LABS: Basophils # (auto) 0.01 K/uL (0-0.2); Basophils % (auto) 0.1 %; Eosinophils # (auto) 0.07 K/uL (0-0.5); Eosinophils % (auto) 0.8 %; Hematocrit (blood only) 39.2 % (42-52); Hemoglobin 13.2 g/dL (14.0-18.0); Immature Granulocytes # (auto) 0.05 K/uL (0.00-0.02); Immature Granulocytes % (auto) 0.6 %; Lymphocytes # (auto) 1.35 K/uL (1.2-3.4); Lymphocytes % (auto) 16.1 %; Mean Corpuscular Hgb Conc 33.7 g/dL (32-36); Mean Platelet Volume 9.1 fL (7.4-10.4); Monocytes # (auto) 0.76 K/uL (0.11-0.59); Neutrophils # (auto) 6.17 K/uL (1.4-6.5); Neutrophils % (auto) 73.4 %; Platelet Count 166 K/uL (130-400); RDW Coefficient of Variation 13.7 % (11.5-14.5); RDW Standard Deviation 46.2 fL (36.4-46.3); Red Blood Count 4.26 M/uL (4.7-6.1); White Blood Count 8.41 K/uL (4.8-10.8)
[2019-04-23 02:28] LABS: Calcium 8.4 mg/dl (8.5-10.1); Creatinine Clr Calc Pharmacy 80.1 ml/min; Est GFR (Non-African American) 70.7; Potassium 4.3 mmol/L (3.5-5.1)
[2019-04-23 07:21] LABS: Estimated Average Glucose 100 mg/dl; Hemoglobin A1C 5.1 % (4.5-5.6)
[2019-04-23] MEDS: METOPROLOL TARTRATE 25 MG TAB PO SCH ×2 (08:58→21:08)
[2019-04-23] MEDS: ASPIRIN 81 MG ECTAB PO SCH (08:58)
[2019-04-23] MEDS: TICAGRELOR 90 MG TAB PO SCH ×2 (08:59→21:08)
[2019-04-23] MEDS: ATORVASTATIN 40 MG TAB PO SCH (08:59)
[2019-04-23] MEDS: lisinopriL 5 MG TAB PO SCH (08:59)
[2019-04-23] MEDS: predniSONE 5 MG TAB PO SCH (08:59)
[2019-04-23] MEDS: PANTOprazole 40 MG TAB PO SCH (09:00)
[2019-04-23] MEDS ORDERED: INFLUENZA VIRUS QUAD VACCINE 0.5 ML SYR IM ONE (09:00)
[2019-04-23] MEDS ORDERED: INFLUENZA ADMINISTRATION CHARGE ONE (09:00)
[2019-04-23] MEDS ORDERED: NON-FORMULARY MEDICATION (Omeprazole 20 MG) PO SCH (09:00)
[2019-04-23] MEDS ORDERED: NITROGLYCERIN SL 0.4 MG/TAB TAB ONE ×2 (09:25→14:42)
[2019-04-23] MEDS: NITROGLYCERIN 2% OINTMENT 30GM TUBE EXT SCH ×4 (09:26→22:24)
[2019-04-23] MEDS ORDERED: NITROGLYCERIN SL 0.4 MG/TAB TAB SL STA (09:29)
[2019-04-23] MEDS ORDERED: ENOXAPARIN INJ 40 MG/0.4 ML SYR SQ STA (10:19)
--- NOTE | 2019-04-23 10:22 | Cardiology Progress Note ---
Date of Service April 23, 2019 Assessment & Plan (1) ST elevation (STEMI) myocardial infarction: (2) S/P right coronary artery (RCA) stent placement: (3) Dyslipidemia, goal LDL below 70: Patient complains of 2/10 chest discomfort at rest which is constant since intervention. Recommend sublingual nitroglycerin and topical nitrates as blood pressure tolerates at this time. Continue low-dose beta-davis as there is no room for titration given resting sinus bradycardia. ECG is reviewed demonstrating gradual improvement of ST elevation post procedure. Troponin trending downward. Continue dual antiplatelet therapy for minimum of 6 months (preferably 12 months) uninterrupted post percutaneous intervention. High intensity statin therapy added. Continue observation in the intensive care unit overnight. Consider referral to cardiac rehab at time of discharge. Subjective Patient seen and examined the bedside. Complains of 2/10 chest discomfort which has been nearly constant since stent implantation. ECG performed at [address] elevation in the inferior and lateral leads. Repeat ECG performed this a.m. is unchanged with possible mild improvement of inferior ST elevation. Patient appears comfortable. States he did not sleep well last night. No dysrhythmias on telemetry. Remains sinus rhythm and sinus bradycardia at this time. Hemodynamically stable. No signs/symptoms of GI/ blood loss. Offers no other concerns/complaints this time. Review of Systems Review of Systems: All systems reviewed & are unremarkable except as noted in HPI & below Physical Exam Physical Exam: General: NAD, AAO x3, well nourished. HEENT: Normocephalic. Atraumatic. Conjunctiva pink, no scleral icterus. Neck: No carotid bruits, the carotid upstrokes are brisk. No JVD. No HJR Heart: Regular normal S-1 and S-2 no S-3 or S-4 gallop. No murmurs or rub appreciated. PMI is not displaced. No RV heave. Lungs: Clear bilateral without rales , rhonchi, or wheeze. Abdomen: Normal bowel sounds. Soft. Nontender. No masses or organomegaly. No abdominal br uits. Extremities: No clubbing, cyanosis, or edema. Pulses: radial=2/4, Dorsalis pedis =2/4, posterior tibial=2/4. Neuro: Cranial nerves grossly intact. No focal motor deficit. Results & Data Vital Signs (Past 12 Hours) Vital Signs Temp Pulse Resp BP Pulse Ox 04/23/19 09:44 60 18 115/73 04/23/19 09:00 57 L 16 110/80 04/23/19 08:01 36.7 C 57 L 23 107/76 99 04/23/19 07:00 53 L 21 109/69 98 04/23/19 06:35 57 L 17 121/86 99 04/23/19 05:00 56 L 19 87/54 L 97 04/23/19 04:00 36.6 C 73 20 115/78 98 04/23/19 03:00 57 L 15 105/67 97 04/23/19 02:01 57 L 16 103/65 96 04/23/19 01:27 53 L 18 134/86 98 04/23/19 01:00 53 L 16 123/83 96 04/23/19 00:00 36.6 C 58 L 17 125/83 98 04/22/19 23:00 75 25 H 118/84 98 Laboratory Results Laboratory Results - last 24 hr 04/22/19 04/22/19 04/22/19 12:41 12:41 12:41 WBC 8.71 RBC 4.67 L Hgb 14.5 Hct 42.2 MCV 90.4 MCH 31.0 MCHC 34.4 RDW Std Deviation 43.9 RDW Coeff of [place] 13.4 Plt Count 193 MPV 9.2 Immature Gran % (Auto) 0.3 Neut % (Auto) 76.7 Lymph % (Auto) 14.8 Bladen % (Auto) 7.5 Eos % (Auto) 0.5 Baso % (Auto) 0.2 Immature Gran # (Auto) 0.03 H Neut # (Auto) 6.68 H Lymph # (Auto) 1.29 Bladen # (Auto) 0.65 H Eos # (Auto) 0.04 Baso # (Auto) 0.02 PT 10.9 INR 1.1 APTT 21.4 PTT Ratio 0.8 Sodium Potassium Chloride Carbon Dioxide Anion Gap BUN Creatinine Est Cr Clr Drug Dosing Est GFR ( Amer) Est GFR (Non-Af Amer) BUN/Creatinine Ratio Glucose POC Glucose Estimat Average Glucose Hemoglobin A1c Calcium Magnesium Total Bilirubin AST ALT Alkaline Phosphatase Total Creatine Kinase CK-MB (CK-2) CK/CKMB % Calc Troponin I Total Protein Albumin Globulin Albumin/Globulin Ratio Triglycerides Cholesterol LDL Cholesterol, Calc VLDL Cholesterol, Calc HDL Cholesterol Cholesterol/HDL Ratio Lipase TSH Nasal Screen MRSA (PCR) Blood Type O Negative Antibody Screen NEGATIVE 04/22/19 04/22/19 04/22/19 12:41 14:15 14:43 WBC RBC Hgb Hct MCV MCH MCHC RDW Std Deviation RDW Coeff of [place] Plt Count MPV Immature Gran % (Auto) Neut % (Auto) Lymph % (Auto) Bladen % (Auto) Eos % (Auto) Baso % (Auto) Immature Gran # (Auto) Neut # (Auto) Lymph # (Auto) Bladen # (Auto) Eos # (Auto) Baso # (Auto) PT INR APTT PTT Ratio Sodium 143 Potassium 4.6 Chloride 107 Carbon Dioxide 19 L Anion Gap 17.0 H BUN 13 Creatinine 1.48 H Est Cr Clr Drug Dosing 62.6 Est GFR ( Amer) 60.4 Est GFR (Non-Af Amer) 52.1 BUN/Creatinine Ratio 9.0 L Glucose 161 H POC Glucose 112 H Estimat Average Glucose Hemoglobin A1c Calcium 9.1 Magnesium 2.0 Total Bilirubin 0.7 AST 20 ALT 27 Alkaline Phosphatase 85 Total Creatine Kinase 67 CK-MB (CK-2) < 1.0 CK/CKMB % Calc TNP Troponin I < 0.015 Total Protein 6.8 Albumin 3.7 Globulin 3.1 Albumin/Globulin Ratio 1.2 Triglycerides Cholesterol LDL Cholesterol, Calc VLDL Cholesterol, Calc HDL Cholesterol Cholesterol/HDL Ratio Lipase 102 TSH 1.150 Nasal Screen MRSA (PCR) Negative Blood Type Antibody Screen 04/22/19 04/23/19 04/23/19 20:34 01:50 01:50 WBC 8.41 RBC 4.26 L Hgb 13.2 L Hct 39.2 L MCV 92.0 MCH 31.0 MCHC 33.7 RDW Std Deviation 46.2 RDW Coeff of [place] 13.7 Plt Count 166 MPV 9.1 Immature Gran % (Auto) 0.6 Neut % (Auto) 73.4 Lymph % (Auto) 16.1 Bladen % (Auto) 9.0 Eos % (Auto) 0.8 Baso % (Auto) 0.1 Immature Gran # (Auto) 0.05 H Neut # (Auto) 6.17 Lymph # (Auto) 1.35 Bladen # (Auto) 0.76 H Eos # (Auto) 0.07 Baso # (Auto) 0.01 PT INR APTT PTT Ratio Sodium 139 Potassium 4.3 Chloride 106 Carbon Dioxide 24 Anion Gap 9.0 BUN 9 Creatinine 1.15 D Est Cr Clr Drug Dosing 80.1 Est GFR ( Amer) 82.0 Est GFR (Non-Af Amer) 70.7 BUN/Creatinine Ratio 8.0 L Glucose 108 H POC Glucose Estimat Average Glucose Hemoglobin A1c Calcium 8.4 L Magnesium Total Bilirubin AST ALT Alkaline Phosphatase Total Creatine Kinase CK-MB (CK-2) CK/CKMB % Calc Troponin I 84.300 H* 92.000 H* Total Protein Albumin Globulin Albumin/Globulin Ratio Triglycerides 176 H Cholesterol 182 LDL Cholesterol, Calc 92 VLDL Cholesterol, Calc 35 HDL Cholesterol 55 Cholesterol/HDL Ratio 3 Lipase TSH Nasal Screen MRSA (PCR) Blood Type Antibody Screen 04/23/19 04/23/19 01:50 07:50 WBC RBC Hgb Hct MCV MCH MCHC RDW Std Deviation RDW Coeff of [place] Plt Count MPV Immature Gran % (Auto) Neut % (Auto) Lymph % (Auto) Bladen % (Auto) Eos % (Auto) Baso % (Auto) Immature Gran # (Auto) Neut # (Auto) Lymph # (Auto) Bladen # (Auto) Eos # (Auto) Baso # (Auto) PT INR APTT PTT Ratio Sodium Potassium Chloride Carbon Dioxide Anion Gap BUN Creatinine Est Cr Clr Drug Dosing Est GFR ( Amer) Est GFR (Non-Af Amer) BUN/Creatinine Ratio Glucose POC Glucose Estimat Average Glucose 100 Hemoglobin A1c 5.1 Calcium Magnesium Total Bilirubin AST ALT Alkaline Phosphatase Total Creatine Kinase CK-MB (CK-2) CK/CKMB % Calc Troponin I 59.200 H* Total Protein Albumin Globulin Albumin/Globulin Ratio Triglycerides Cholesterol LDL Cholesterol, Calc VLDL Cholesterol, Calc HDL Cholesterol Cholesterol/HDL Ratio Lipase TSH Nasal Screen MRSA (PCR) Blood Type Antibody Screen (1) ST elevation (STEMI) myocardial infarction Involved coronary artery: unspecified coronary artery Qualified Code(s): I21.3 - ST elevation (STEMI) myocardial infarction of unspecified site
--- NOTE | 2019-04-23 11:53 | Critical Care Progress Note ---
Date of Service April 23, 2019 Assessment & Plan (1) Acute renal insufficiency: Reason Critically ill: 58 year old man status post large myocardial infarction status post catheterization with stent placed in right coronary artery. Neuro: CAM-ICU negative No neuro deficits, Peripheral strength and sensation intact Cardiovascular: STEMI with BRIE placed in RCA. Will continue dual antiplatelet therapy with ASA 81 and Brilinta Metoprolol, Lisinopril, and atorvastatin 80 mg to be continued indefinitely Patient continues to have chest pain, troponin peaked today at 92, appears to be a large infarct Echo showing preserved EF and a large area of the posteroinferoseptal left ventricle that is hypokinetic Will hold patient in ICU given concern for continued chest pain Trying nitropaste and sublingual nitroglycerin to attempt to relieve pain, but have so far been unsuccessful Morphine PRN ordered No signs of bleeding Patient has been bradycardic will continue to monitor Respiratory: Patient with no respiratory concerns, saturating well on room air GI: No concerns for GI issues currently Renal: Elevated creatinine to 1.48 at time of admission Today has downtrended to 1.15 Good PO intake no IV fluids ID: No concern for infection Dispo: ICU until angina stabilizes F/E/N: Heart healthy diet DVT PPx: Lovenox Code Status: Full (2) Alcohol abuse: (3) Dyslipidemia, goal LDL below 70: (4) S/P right coronary artery (RCA) stent placement: (5) Renal insufficiency: (6) Elevated glucose: (7) Tobacco use: (8) Dyslipidemia: (9) GERD (gastroesophageal reflux disease): (10) Ankylosing spondylitis: (11) ST elevation (STEMI) myocardial infarction: Supervising Physician Co-Signing Physician Notes Dr. Seaman was the resident-physician during care of patient. I separately evaluated patient for alvarado portions of the history and the exam. I was present during the critical portion of medical decision making, and I discussed the case with the resident. I generally agree with the findings and plan except for any additions/exceptions noted. Patient seen and examined at bedside. Feeling better. Chest pain has decreased in intensity. Patient is borderline bradycardic but hemodynamically stable. Echocardiogram does not show any new changes. Troponins peaked to 92. Trending down now. Discussed the case with cardiology, will keep the patient in the ICU overnight as patient still having episodes of chest pain. I have personally spent 30 minutes of critical care time in the direct manag ement of this patient. This is a life/limb threatening event. This includes time spent evaluating patient, direct bedside care, chart review, placing orders, interpretation of diagnostic studies, discussion with consultants, patient, and/or family members regarding treatment decisions, as well as other required patient management activities. This time is exclusive of all separately billable procedures, and teaching time and separate from and in addition to any other critical care service time. Subjective Mr. Fuller is continuing to have chest pain today. He is saying it's about a 2/10 nitro and morphine don't seem to help much. he is not feeling short of breath, no palpitations, no change or radiation in his chest pain. He has been in bed most of the day and appears anxious. Review of Systems Review of Systems: All systems reviewed & are unremarkable except as noted in HPI & below Physical Exam Physical Exam: Constitutional: Well appearing 58 year old man appearing stated age, in no acute distress Eyes: EOMMI b/l, PERRLA, anicteric sclerae Respiratory: Chest expansion symmetric, good air entry globally, breath sounds vesicular Cardiovascular: Bradycardic, regular rhythm, GI: Abdomen soft/nontender Skin: No rashes or bruising Results & Data Vital Signs (Past 12 Hours) Vital Signs Temp Pulse Resp BP Pulse Ox 04/23/19 09:44 60 18 115/73 04/23/19 09:00 57 L 16 110/80 04/23/19 08:01 36.7 C 57 L 23 107/76 99 04/23/19 07:00 53 L 21 109/69 98 04/23/19 06:35 57 L 17 121/86 99 04/23/19 05:00 56 L 19 87/54 L 97 04/23/19 04:00 36.6 C 73 20 115/78 98 04/23/19 03:00 57 L 15 105/67 97 04/23/19 02:01 57 L 16 103/65 96 04/23/19 01:27 53 L 18 134/86 98 04/23/19 01:00 53 L 16 123/83 96 04/23/19 00:00 36.6 C 58 L 17 125/83 98 Laboratory Results 04/23/19 01:50 04/23/19 01:50 Abnormal lab results 04/22/19 04/23/19 04/23/19 Range/Units 20:34 01:50 01:50 RBC 4.26 L (4.7-6.1) M/uL Hgb 13.2 L (14.0-18.0) g/dL Hct 39.2 L (42-52) % Immature Gran # (Auto) 0.05 H (0.00-0.02) K/uL Mccracken # (Auto) 0.76 H (0.11-0.59) K/uL BUN/Creatinine Ratio 8.0 L (10-20) Glucose 108 H (70-99) mg/dl Calcium 8.4 L (8.5-10.1) mg/dl Troponin I 84.300 H* 92.000 H* (0-0.045) ng/ml Triglycerides 176 H (0-150) mg/dl 04/23/19 Range/Units 07:50 RBC (4.7-6.1) M/uL Hgb (14.0-18.0) g/dL Hct (42-52) % Immature Gran # (Auto) (0.00-0.02) K/uL M[place]racken # (Auto) (0.11-0.59) K/uL BUN/Creatinine Ratio (10-20) Glucose (70-99) mg/dl Calcium (8.5-10.1) mg/dl Troponin I 59.200 H* (0-0.045) ng/ml Triglycerides (0-150) mg/dl PG Care Time/CCT Total # of Minutes Spent Total Time Spent with Patient: Total time spent is greater than 50% in co ordination of care (as documented) at patient's floor/unit and/or counseling patient: Critical Care Time: Yes Total Critical Care Time: 30 Resident Activity Tracking Resident Involvement: Resident Care Provided Care Provided: Adult Hospital Medicine (1) ST elevation (STEMI) myocardial infarction Involved coronary artery: unspecified coronary artery Qualified Code(s): I21.3 - ST elevation (STEMI) myocardial infarction of unspecified site
[2019-04-23] MEDS ORDERED: NITROGLYCERIN SL 0.4 MG/TAB TAB SL PRN (15:10)
[2019-04-23] MEDS ORDERED: MoRPHine SULFATE 2 MG/ML CARP IV STA (15:42)
--- NOTE | 2019-04-23 15:50 | Hospitalist Progress Note ---
Date of Service April 23, 2019 Assessment & Plan (1) ST elevation (STEMI) myocardial infarction: Today patient had outpatient exercise stress echo with no reported inducible ischemia and pt able to perform exercise for 10 minutes. After stress test patient was walking down serrato and developed anterior CP, left arm pain, diaphoresis and SOB with EKG in clinic reported to show sinus rhythm with ST elevation inferior leads and leads V3-V6. In clinic had 324mg ASA and 1 SL nitro. 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 S/P PCI, [address] BRIE [address] RCA by Dr Wolff on 04/22 Status post right coronary artery stent placement Patient remains symptomatic of chest pain about 2 out of 10 on a scale of 0-10 Has been getting nitro and beta-davis Troponin has been improving, monitor is not showing any arrhythmia Appreciate cardiology input and recommendation We will transfer the patient to telemetry for continuation of care (2) Renal insufficiency: Cr: 1.4. Baseline Cr:1.1 with GFR>60 Pt received contrast with cardiac cath Has been receiving intravenous fluid following cardiac cath Creatinine has improved to 1.15 Monitor electrolytes while in the hospital (3) Elevated glucose: Random glucose: 161 -Hemoglobin A1c is 5.1 (4) Ankylosing spondylitis: -Continue prednisone -Hold Diclofenac (5) Dyslipidemia: -Lipid panel in am: Total cholesterol is 182 minimally high triglyceride iat 170 -Atorvastatin started (6) GERD (gastroesophageal reflux disease): -Continue PPI (7) Tobacco use: Chews snuff -Tobacco cessation encouraged DVT Prophylaxis -Ambulate Clinically much better We will transfer him to telemetry unit Subjective 04/23 The patient was seen and examined in ICU He complains to some precordial pain 2 out of 10 on except of 0-10 Denies any shortness of breath and/or palpitation and remains hemodynamically stable His troponin has been improving Review of Systems Review of Systems: All systems reviewed and are unremarkable except as noted below Respiratory: no cough and no dyspnea Cardiovascular: + chest pain (2 out of 10 precordium) Physical Exam Physical Exam: Lying in bed with some discomfort in the chest Constitutional: well developed, well nourished, + acute distress (As above) and + ill appearing Eyes: PERRL, conjunctivae normal, anicteric sclerae ENMT: external ear and nose normal, oropharynx normal Neck: trachea midline, no thyromegaly Respiratory: normal respiratory effort Auscultation: lungs clear to auscultation bilaterally Cardiovascular: Rate/Rhythm: regular rate and regular rhythm Heart Sounds: no murmur Neurologic: moves all extremities; no focal motor deficits Results & Data Vital Signs (Past 12 Hours) Vital Signs Temp Pulse Resp BP Pulse Ox 04/23/19 15:00 58 L 16 92/62 L 04/23/19 14:43 56 L 16 106/63 04/23/19 10:00 58 L 22 132/84 04/23/19 09:44 60 18 115/73 04/23/19 09:00 57 L 16 110/80 04/23/19 08:01 36.7 C 57 L 23 107/76 99 04/23/19 07:00 53 L 21 109/69 98 04/23/19 06:35 57 L 17 121/86 99 04/23/19 05:00 56 L 19 87/54 L 97 04/23/19 04:00 36.6 C 73 20 115/78 98 Laboratory Results Short CBC 04/23/19 Range/Units 01:50 WBC 8.41 (4.8-10.8) K/uL Hgb 13.2 L (14.0-18.0) g/dL Hct 39.2 L (42-52) % Plt Count 166 (130-400) K/uL BMP 04/23/19 01:50 Sodium 139 Potassium 4.3 Chloride 106 Carbon Dioxide 24 BUN 9 Creatinine 1.15 D Glucose 108 H Calcium 8.4 L Cardiac Enzymes 04/22/19 04/23/19 04/23/19 Range/Units 20:34 01:50 07:50 Troponin I 84.300 H* 92.000 H* 59.200 H* (0-0.045) ng/ml Medications Administered Current Inpatient Medications Acetaminophen (Tylenol) 650 mg PO Q4H PRN PRN Reason: Mild Pain (scale 1-3) Stop: 05/22/19 14:29 Last Admin: 04/23/19 10:46 Dose: 650 mg Documented by: Aspirin (Ecotrin Ectab) 81 mg PO [facility] Stop: 05/23/19 08:59 Last Admin: 04/23/19 08:58 Dose: 81 mg Documented by: Atorvastatin Calcium (Lipitor) 80 mg PO [facility] Stop: 05/23/19 08:59 Last Admin: 04/23/19 08:59 Dose: 80 mg Documented by: Enoxaparin Sodium (Lovenox) 40 mg SQ QAM [facility] Stop: 05/24/19 08:59 Lisinopril (Zestril) 5 mg PO QAM [facility] Stop: 05/23/19 08:59 Last Admin: 04/23/19 08:59 Dose: 5 mg Documented by: Metoprolol Tartrate (Lopressor) 12.5 mg PO BID [facility] Stop: 05/22/19 20:59 Last Admin: 04/23/19 08:58 Dose: 12.5 mg Documented by: Miscellaneous (Icu Protocol For Hyperglycemia) 1 ea N/A PRN PRN; Protocol PRN Reason: Hyperglycemia Protocol Stop: 04/24/19 15:31 Nitroglycerin (Nitro-Bid 2%) 0.5 inch EXT Q6H [facility] Stop: 05/23/19 09:59 Last Admin: 04/23/19 09:26 Dose: 0.5 inch Documented by: Nitroglycerin (Nitrostat) 0.4 mg SL PRN PRN PRN Reason: Chest Pain Stop: 05/23/19 15:09 Ondansetron HCl (Zofran) 4 mg IV Q6H PRN PRN Reason: Nausea And Vomiting Stop: 05/22/19 14:29 Pantoprazole Sodium (Protonix) 40 mg PO QAM [facility] Stop: 05/23/19 08:59 Last Admin: 04/23/19 09:00 Dose: 40 mg Documented by: Prednisone (Prednisone) 5 mg PO DAILY [facility] Stop: 05/23/19 08:59 Last Admin: 04/23/19 08:59 Dose: 5 mg Documented by: Ticagrelor (Brilinta) 90 mg PO BID [facility] Stop: 05/22/19 20:59 Last Admin: 04/23/19 08:59 Dose: 90 mg Documented by: (1) ST elevation (STEMI) myocardial infarction Involved coronary artery: unspecified coronary artery Qualified Code(s): I21.3 - ST elevation (STEMI) myocardial infarction of unspecified site
[2019-04-24] MEDS: NITROGLYCERIN 2% OINTMENT 30GM TUBE EXT SCH ×4 (04:19→23:27)
[2019-04-24] MEDS ORDERED: MoRPHine SULFATE 2 MG/ML CARP IV STA (04:34)
[2019-04-24 05:00] LABS: Basophils # (auto) 0.01 K/uL (0-0.2); Basophils % (auto) 0.1 %; Eosinophils # (auto) 0.09 K/uL (0-0.5); Eosinophils % (auto) 1.1 %; Hematocrit (blood only) 38.2 % (42-52); Hemoglobin 12.8 g/dL (14.0-18.0); Immature Granulocytes # (auto) 0.07 K/uL (0.00-0.02); Immature Granulocytes % (auto) 0.9 %; Lymphocytes # (auto) 1.27 K/uL (1.2-3.4); Lymphocytes % (auto) 15.5 %; Mean Corpuscular Hemoglobin 31.4 pg (25-34); Mean Corpuscular Hgb Conc 33.5 g/dL (32-36); Mean Corpuscular Volume 93.9 fL (80-100); Mean Platelet Volume 9.4 fL (7.4-10.4); Monocytes # (auto) 0.71 K/uL (0.11-0.59); Monocytes % (auto) 8.7 %; Neutrophils # (auto) 6.02 K/uL (1.4-6.5); Neutrophils % (auto) 73.7 %; Platelet Count 169 K/uL (130-400); RDW Coefficient of Variation 13.5 % (11.5-14.5); RDW Standard Deviation 46.6 fL (36.4-46.3); Red Blood Count 4.07 M/uL (4.7-6.1); White Blood Count 8.17 K/uL (4.8-10.8)
[2019-04-24 05:17] LABS: BUN Creatinine Ratio 7.9 (10-20); Calcium 8.6 mg/dl (8.5-10.1); Creatinine Clr Calc Pharmacy 78.7 ml/min; Est GFR (African American) 80.3; Est GFR (Non-African American) 69.3; Magnesium 1.9 mg/dl (1.8-2.4); Potassium 3.7 mmol/L (3.5-5.1)
[2019-04-24 05:28] LABS: Phosphorus 2.3 mg/dl (2.5-4.9); Troponin I 28.9 ng/ml (0-0.045)
[2019-04-24] MEDS ORDERED: POTASSIUM PHOS 3 MMOL/1 ML INFUSION IV STA (05:36)
[2019-04-24] MEDS ORDERED: POTASSIUM PHOSPHATE 15 MMOL in SODIUM CHLORIDE 0.9% 250 ML IV ONE (06:00)
[2019-04-24] MEDS ORDERED: predniSONE 20 MG TAB PO ONE (07:30)
[2019-04-24] MEDS: POLYETHYLENE (MIRALAX) 17 GM PACK PO SCH (08:34)
[2019-04-24] MEDS: DOCUSATE SODIUM/SENNA 50/8.6MG TAB PO SCH (08:36)
[2019-04-24] MEDS: METOPROLOL TARTRATE 25 MG TAB PO SCH ×2 (08:37→20:53)
[2019-04-24] MEDS: predniSONE 5 MG TAB PO SCH (08:37)
[2019-04-24] MEDS: PANTOprazole 40 MG TAB PO SCH (08:37)
[2019-04-24] MEDS: TICAGRELOR 90 MG TAB PO SCH ×2 (08:37→20:53)
[2019-04-24] MEDS: ATORVASTATIN 40 MG TAB PO SCH (08:38)
[2019-04-24] MEDS: lisinopriL 5 MG TAB PO SCH (08:38)
[2019-04-24] MEDS: ASPIRIN 81 MG ECTAB PO SCH (08:38)
[2019-04-24] MEDS: ENOXAPARIN INJ 40 MG/0.4 ML SYR SQ SCH (08:39)
[2019-04-24] MEDS: ACETAMINOPHEN 325 MG TAB PO PRN ×2 (08:45→16:20)
--- NOTE | 2019-04-24 09:20 | Critical Care Progress Note ---
Date of Service April 24, 2019 Assessment & Plan (1) Acute renal insufficiency: Reason Critically ill: 58 year old man status post large myocardial infarction status post catheterization with stent placed in right coronary artery. Neuro: CAM-ICU negative No neuro deficits, Peripheral strength and sensation intact Cardiovascular: STEMI with BRIE placed in RCA. Will continue dual antiplatelet therapy with ASA 81 and Brilinta Metoprolol, Lisinopril, and atorvastatin 80 mg to be continued indefinitely Patient continues to have chest pain, troponin peaked today at 92, appears to be a large infarct Echo showing preserved EF and a large area of the posteroinferoseptal left ventricle that is hypokinetic No signs of bleeding Patient has been bradycardic but asymptomatic Respiratory: Patient with no respiratory concerns, saturating well on room air GI: No concerns for GI issues currently Renal: Elevated creatinine to 1.48 at time of admission Today has downtrended to 1.15 Good PO intake no IV fluids ID: No concern for infection Dispo: Tele F/E/N: Heart healthy diet DVT PPx: Lovenox Code Status: Full (2) Alcohol abuse: (3) Dyslipidemia, goal LDL below 70: (4) S/P right coronary artery (RCA) stent placement: (5) Renal insufficiency: (6) Elevated glucose: (7) Tobacco use: (8) Dyslipidemia: (9) GERD (gastroesophageal reflux disease): (10) Ankylosing spondylitis: (11) ST elevation (STEMI) myocardial infarction: Supervising Physician Co-Signing Physician Notes Dr. Seaman was the resident-physician during care of patient. I separately evaluated patient for alvarado portions of the history and the exam. I was present during the critical portion of medical decision making, and I discussed the case with the resident. I generally agree with the findings and plan except for any additions/exceptions noted. Patient seen and examined at bedside. Feeling better. Complaining of lower back pain. Chest pain has decreased in intensity. Denies any N or V. No EKG changes. Patient stable enough to be downgraded. For Back pain, patient given a dose of 40mg Prednisone. I have personally spent 32 minutes of critical care time in the direct management of this patient. This is a life/limb threatening event. This includes time spent evaluating patient, direct bedside care, chart review, placing orders, interpretation of diagnostic studies, discussion with consultants, patient, and/or family members regarding treatment decisions, as well as other required patient management activities. This time is exclusive of all separately billable procedures, and teaching time and separate from and in addition to any other critical care service time. rYn mcneill is not having any more chest pain, but is having some bad back pain he attributes to his ankylosing spondylitis. He has this from time to time and his outpatient treatment is to increase his prednisone to 40 or 50 and taper off daily. He denies other pain, shortness of breath, palpitations, Physical Exam Physical Exam: Constitutional: Well appearing 58 year old man appearing stated age, in no acute distress Eyes: EOMMI b/l, PERRLA, anicteric sclerae Respiratory: Chest expansion symmetric, good air entry globally, breath sounds vesicular Cardiovascular: Bradycardic, regular rhythm, no murmurs or gallops GI: Abdomen soft/nontender Skin: No rashes or bruising G/U: No mccollum Lymphatic: no cervical or axillary lymphadenopathy Results & Data Vital Signs (Past 12 Hours) Vital Signs Temp Pulse Resp BP Pulse Ox 04/24/19 08:00 37.1 C 69 21 96/59 L 96 04/24/19 06:00 75 15 99/66 L 94 04/24/19 05:15 57 L 17 104/60 96 04/24/19 05:00 58 L 17 103/73 99 04/24/19 04:48 58 L 25 H 100/69 96 04/24/19 04:31 67 15 115/71 97 04/24/19 04:25 71 20 106/67 98 04/24/19 04:10 36.9 C 04/24/19 04:09 63 21 105/70 95 04/24/19 03:00 56 L 21 104/66 93 04/24/19 02:00 59 L 14 108/70 94 04/24/19 01:07 56 L 18 85/56 L 04/24/19 01:00 60 18 96 04/24/19 00:00 64 19 95/62 L 96 04/23/19 23:44 36.7 C 04/23/19 23:00 56 L 18 89/62 L 94 04/23/19 22:00 57 L 21 92/61 L 92 Laboratory Results 04/24/19 04:42 10/03/19 04:42 PG Care Time/CCT Total # of Minutes Spent Total Time Spent with Patient: Total time spent is greater than 50% in coordination of care (as documented) at patient's floor/unit and/or counseling patient: (1) ST elevation (STEMI) myocardial infarction Involved coronary artery: unspecified coronary artery Qualified Code(s): I21.3 - ST elevation (STEMI) myocardial infarction of unspecified site
--- NOTE | 2019-04-24 10:46 | Hospitalist Progress Note ---
Date of Service April 24, 2019 Assessment & Plan (1) ST elevation (STEMI) myocardial infarction: Today patient had outpatient exercise stress echo with no reported inducible ischemia and pt able to perform exercise for 10 minutes. After stress test patient was walking down serrato and developed anterior CP, left arm pain, diaphoresis and SOB with EKG in clinic reported to show sinus rhythm with ST elevation inferior leads and leads V3-V6. In clinic had 324mg ASA and 1 SL nitro. From ER pt taken urgently to veterinary laboratory technician. S/P PCI, [address] BRIE [address] RCA [address] Dr Wolff on 04/22 Status post right coronary artery stent placement Patient remains symptomatic of chest pain about 2 out of 10 on a scale of 0-10 Has been getting nitro and beta-davis Troponin has been improving, monitor is not showing any arrhythmia Appreciate cardiology input and recommendation Denies any more chest pain in the troponin has been trending down No arrhythmia in monitor We will transfer the patient to telemetry unit (2) Renal insufficiency: Cr: 1.4. Baseline Cr:1.1 with GFR>60 Pt received contrast with cardiac cath Has been receiving intravenous fluid following cardiac cath Creatinine has improved to 1.15 Monitor electrolytes while in the hospital-creatinine has been normalized and phosphate has been replaced (3) Elevated glucose: Random glucose: 161 -Hemoglobin A1c is 5.1 (4) Ankylosing spondylitis: -Continue prednisone -Hold Diclofenac -Was started with oral prednisone 40 mg once a day -Glucocorticoids has been shown to be any beneficial with ankylosing spondylitis -We will discontinue in a day or 2 -He cannot use any NSAID use due to his heart condition (5) Dyslipidemia: -Lipid panel in am: Total cholesterol is 182 minimally high triglyceride iat 170 -Atorvastatin started (6) GERD (gastroesophageal reflux disease): -Continue PPI (7) Tobacco use: Chews snuff -Tobacco cessation encouraged DVT Prophylaxis -Ambulate Clinically much better We will transfer him to telemetry unit Subjective 04/23 The patient was seen and examined in ICU He complains to some precordial pain 2 out of 10 on except of 0-10 Denies any shortness of breath and/or palpitation and remains hemodynamically stable His troponin has been improving 04/24 The patient was seen and examined in ICU He has been complaining of some nonspecific chest pain seems to be not due to cardiac condition His main problem is back pain which is due to ankylosing spondylitis that he has He was started with oral prednisone 40 mg once a day to see if it helps the pain Denies any palpitation and no shortness of breath Review of Systems Review of Systems: All systems reviewed and are unremarkable except as noted below Cardiovascular: + chest pain (2 out of 10 precordium) Musculoskeletal: + back pain (Has significant ankylosing spondylitis) Physical Exam Physical Exam: Lying in bed comfortably Constitutional: well developed and well nourished Eyes: PERRL, conjunctivae normal, anicteric sclerae ENMT: external ear and nose normal, oropharynx normal Neck: trachea midline, no thyromegaly Respiratory: normal respiratory effort Auscultation: lungs clear to auscultation bilaterally Cardiovascular: Rate/Rhythm: regular rate and regular rhythm Heart Sounds: no murmur Gastrointestinal (Abdomen): Inspection/Auscultation: abdomen normal to inspection Percussion/Palpation: abdomen soft Musculoskeletal: Complains of back pain Neurologic: moves all extremities; no focal motor deficits Lymphatic: no cervical or axillary lymphadenopathy Results & Data Vital Signs (Past 12 Hours) Vital Signs Temp Pulse Resp BP Pulse Ox 04/24/19 08:00 37.1 C 69 21 96/59 L 96 04/24/19 06:00 75 15 99/66 L 94 04/24/19 05:15 57 L 17 104/60 96 04/24/19 05:00 58 L 17 103/73 99 04/24/19 04:48 58 L 25 H 100/69 96 04/24/19 04:31 67 15 115/71 97 04/24/19 04:25 71 20 106/67 98 04/24/19 04:10 36.9 C 04/24/19 04:09 63 21 105/70 95 04/24/19 03:00 56 L 21 104/66 93 04/24/19 02:00 59 L 14 108/70 94 04/24/19 01:07 56 L 18 85/56 L 04/24/19 01:00 60 18 96 04/24/19 00:00 64 19 95/62 L 96 04/23/19 23:44 36.7 C 04/23/19 23:00 56 L 18 89/62 L 94 Laboratory Results Short CBC 04/24/19 Range/Units 04:42 WBC 8.17 (4.8-10.8) K/uL Hgb 12.8 L (14.0-18.0) g/dL Hct 38.2 L (42-52) % Plt Count 169 (130-400) K/uL BMP 04/24/19 04:42 Sodium 139 Potassium 3.7 Chloride 105 Carbon Dioxide 25 BUN 9 Creatinine 1.17 Glucose 142 H Calcium 8.6 Cardiac Enzymes 04/24/19 Range/Units 04:42 Troponin I 28.900 H* (0-0.045) ng/ml Medications Administered Current Inpatient Medications Acetaminophen (Tylenol) 650 mg PO Q4H PRN PRN Reason: Mild Pain (scale 1-3) Stop: 05/22/19 14:29 Last Admin: 04/24/19 08:45 Dose: 650 mg Documented by: Aspirin (Ecotrin Ectab) 81 mg PO [facility] Stop: 05/23/19 08:59 Last Admin: 04/24/19 08:38 Dose: 81 mg Documented by: Atorvastatin Calcium (Lipitor) 80 mg PO [facility] Stop: 05/23/19 08:59 Last Admin: 04/24/19 08:38 Dose: 80 mg Documented by: Enoxaparin Sodium (Lovenox) 40 mg SQ [facility] Stop: 05/24/19 08:59 Last Admin: 04/24/19 08:39 Dose: 40 mg Documented by: [facility]inop[facility] ([facility]estril) [address] [place] Stop: 05/23/19 08:59 Last Admin: 04/24/19 08:38 Dose: 5 mg Documented by: Metoprolol Tartrate (Lopressor) 12.5 mg PO BID [facility] Stop: 05/22/19 20:59 Last Admin: 04/24/19 08:37 Dose: 12.5 mg Documented by: Miscellaneous (Icu Protocol For Hyperglycemia) 1 ea N/A PRN PRN; Protocol PRN Reason: Hyperglycemia Protocol Stop: 04/24/19 15:31 Nitroglycerin (Nitro-Bid 2%) 0.5 inch EXT Q6H [facility] Stop: 05/23/19 09:59 Last Admin: 04/24/19 10:30 Dose: 0.5 inch Documented by: Nitroglycerin (Nitrostat) 0.4 mg SL PRN PRN PRN Reason: Chest Pain Stop: 05/23/19 15:09 Last Admin: 04/24/19 04:20 Dose: 0.4 mg Documented by: Ondansetron HCl (Zofran) 4 mg IV Q6H PRN PRN Reason: Nausea And Vomiting Stop: 05/22/19 14:29 Pantoprazole Sodium (Protonix) 40 mg PO QAM [facility] Stop: 05/23/19 08:59 Last Admin: 04/24/19 08:37 Dose: 40 mg Documented by: Polyethylene Glycol (Miralax Powder Packet) 17 gm PO DAILY [facility] Stop: 05/24/19 08:59 Last Admin: 04/24/19 08:34 Dose: 17 gm Documented by: Prednisone (Prednisone) 5 mg PO DAILY [facility] Stop: 05/23/19 08:59 Last Admin: 04/24/19 08:37 Dose: 5 mg Documented by: Senna/Docusate Sodium (Senokot S) 1 tab PO QAM [facility] Stop: 05/24/19 08:59 Last Admin: 04/24/19 08:36 Dose: 1 tab Documented by: Ticagrelor (Brilinta) 90 mg PO BID [facility] Stop: 05/22/19 20:59 Last Admin: 04/24/19 08:37 Dose: 90 mg Documented by: (1) ST elevation (STEMI) myocardial infarction Involved coronary artery: unspecified coronary artery Qualified Code(s): I21.3 - ST elevation (STEMI) myocardial infarction of unspecified site
--- NOTE | 2019-04-24 11:08 | Cardiology Progress Note ---
Date of Service April 24, 2019 Assessment & Plan (1) ST elevation (STEMI) myocardial infarction: (2) S/P right coronary artery (RCA) stent placement: (3) Dyslipidemia, goal LDL below 70: Chest discomfort present however improved over the past 24 hours. Troponin trending downward. ECG with evidence of recent inferolateral MO. No new ST elevation. Patient may be transferred from intensive care to the progressive care unit today. Continue dual antiplatelet therapy for minimum 6 months post percutaneous intervention (preferably 12 months). Continue other cardiovascular medications including AHMET inhibitor, beta-davis, topical nitrates, and high intensity statin therapy. Tentative plan for discharge in 24 hours. Subjective Patient seen and examined the bedside. Chest discomfort present however improved over the past 24 hours. Tolerating diet medications. No signs or symptoms of GI/ blood loss. No dysrhythmias on telemetry. No orthopnea, PND, or lower extremity edema. Offers no new complaints this time. Family present at bedside. Review of Systems Review of Systems: All systems reviewed & are unremarkable except as noted in HPI & below Physical Exam Physical Exam: General: NAD, AAO x3, well nourished. HEENT: Normocephalic. Atraumatic. Conjunctiva pink, no scleral icterus. Neck: No carotid bruits, the carotid upstrokes are brisk. No JVD. No HJR Heart: Regular normal S-1 and S-2 no S-3 or S-4 gallop. No murmurs or rub appreciated. PMI is not displaced. No RV heave. Lungs: Clear bilateral without rales , rhonchi, or wheeze. Abdomen: Normal bowel sounds. Soft. Nontender. No masses or organomegaly. No abdominal bruits. Extremities: No clubbing, cyanosis, or edema. Pulses: radial=2/4, Dorsalis pedis =2/4, posterior tibial=2/4. Neuro: Cranial nerves grossly intact. No focal motor deficit. Results & Data Vital Signs (Past 12 Hours) Vital Signs Temp Pulse Resp BP Pulse Ox 04/24/19 10:00 62 21 109/76 93 04/24/19 09:00 61 20 107/69 97 04/24/19 08:00 37.1 C 69 21 96/59 L 96 04/24/19 06:00 75 15 99/66 L 94 04/24/19 05:15 57 L 17 104/60 96 04/24/19 05:00 58 L 17 103/73 99 04/24/19 04:48 58 L 25 H 100/69 96 04/24/19 04:31 67 15 115/71 97 04/24/19 04:25 71 20 106/67 98 04/24/19 04:10 36.9 C 04/24/19 04:09 63 21 105/70 95 04/24/19 03:00 56 L 21 104/66 93 04/24/19 02:00 59 L 14 108/70 94 04/24/19 01:07 56 L 18 85/56 L 04/24/19 01:00 60 18 96 04/24/19 00:00 64 19 95/62 L 96 04/23/19 23:44 36.7 C Laboratory Results Laboratory Results - last 24 hr 04/23/19 04/24/19 04/24/19 21:05 04:42 04:42 WBC 8.17 RBC 4.07 L Hgb 12.8 L Hct 38.2 L MCV 93.9 MCH 31.4 MCHC 33.5 RDW Std Deviation 46.6 H RDW Coeff of [place] 13.5 Plt Count 169 MPV 9.4 Immature Gran % (Auto) 0.9 Neut % (Auto) 73.7 Lymph % (Auto) 15.5 [place] % (Auto) 8.7 Eos % (Auto) 1.1 Baso % (Auto) 0.1 Immature Gran # (Auto) 0.07 H Neut # (Auto) 6.02 Lymph # (Auto) 1.27 [place] # (Auto) 0.71 H Eos # (Auto) 0.09 Baso # (Auto) 0.01 Sodium 139 Potassium 3.7 Chloride 105 Carbon Dioxide 25 Anion Gap 9.0 BUN 9 Creatinine 1.17 Est Cr Clr Drug Dosing 78.7 Est GFR ( Amer) 80.3 Est GFR (Non-Af Amer) 69.3 BUN/Creatinine Ratio 7.9 L Glucose 142 H POC Glucose 105 H Calcium 8.6 Phosphorus 2.3 L Magnesium 1.9 Troponin I 28.900 H* (1) ST elevation (STEMI) myocardial infarction Involved coronary artery: unspecified coronary artery Qualified Code(s): I21.3 - ST elevation (STEMI) myocardial infarction of unspecified site
[2019-04-25] MEDS: NITROGLYCERIN 2% OINTMENT 30GM TUBE EXT SCH ×2 (03:49→10:49)
[2019-04-25] MEDS: ACETAMINOPHEN 325 MG TAB PO PRN (07:20)
[2019-04-25] MEDS: METOPROLOL TARTRATE 25 MG TAB PO SCH (10:14)
[2019-04-25] MEDS: ATORVASTATIN 40 MG TAB PO SCH (10:14)
[2019-04-25] MEDS: lisinopriL 5 MG TAB PO SCH (10:15)
[2019-04-25] MEDS: TICAGRELOR 90 MG TAB PO SCH (10:15)
[2019-04-25] MEDS: DOCUSATE SODIUM/SENNA 50/8.6MG TAB PO SCH (10:15)
[2019-04-25] MEDS: ASPIRIN 81 MG ECTAB PO SCH (10:15)
[2019-04-25] MEDS: PANTOprazole 40 MG TAB PO SCH (10:15)
[2019-04-25] MEDS: POLYETHYLENE (MIRALAX) 17 GM PACK PO SCH (10:16)
[2019-04-25] MEDS: ENOXAPARIN INJ 40 MG/0.4 ML SYR SQ SCH (10:16)
[2019-04-25] MEDS ORDERED: predniSONE 10 MG TABLET PO SCH (10:45)
--- NOTE | 2019-04-25 11:23 | Hospitalist Progress Note ---
Date of Service April 25, 2019 Assessment & Plan (1) ST elevation (STEMI) myocardial infarction: Today patient had outpatient exercise stress echo with no reported inducible ischemia and pt able to perform exercise for 10 minutes. After stress test patient was walking down serr[place] and developed anterior CP, left arm pain, diaphoresis and SOB with EKG in clinic reported to show sinus rhythm with ST elevation inferior leads and leads V3-V6. In clinic had 324mg ASA and 1 SL nitro. From ER pt taken urgently to laboratory analyst. S/P PCI, [address] BRIE [address] RCA by Dr Wolff on 04/22 Status post right coronary artery stent placement Patient remains symptomatic of chest pain about 2 out of 10 on a scale of 0-10 Has been getting nitro and beta-davis Troponin has been improving, monitor is not showing any arrhythmia Appreciate cardiology input and recommendation Denies any more chest pain in the troponin has been trending down No arrhythmia in monitor We will transfer the patient to telemetry unit He remains stable without any chest pain Be discharged this afternoon (2) Renal insufficiency: Cr: 1.4. Baseline Cr:1.1 with GFR>60 Pt received contrast with cardiac cath Has been receiving intravenous fluid following cardiac cath Creatinine has improved to 1.15 Monitor electrolytes while in the hospital-creatinine has been normalized and phosphate has been replaced (3) Elevated glucose: Random glucose: 161 -Hemoglobin A1c is 5.1 (4) Ankylosing spondylitis: -Continue prednisone -Hold Diclofenac -Was started with oral prednisone 40 mg once a day -Glucocorticoids has been shown to be any beneficial with ankylosing spondylitis -We will discontinue in a day or 2 -He cannot use any NSAID use due to his heart condition -Rapid taper of prednisone and continue with 5 mg as before (5) Dyslipidemia: -Lipid panel in am: Total cholesterol is 182 minimally high triglyceride iat 170 -Atorvastatin started (6) GERD (gastroesophageal reflux disease): -Continue PPI (7) Tobacco use: Chews snuff -Tobacco cessation encouraged DVT Prophylaxis -Ambulate Clinically much better Discharge home this afternoon Subjective 04/23 The patient was seen and examined in ICU He complains to some precordial pain 2 out of 10 on except of 0-10 Denies any shortness of breath and/or palpitation and remains hemodynamically stable His troponin has been improving 04/24 The patient was seen and examined in ICU He has been complaining of some nonspecific chest pain seems to be not due to cardiac condition His main problem is back pain which is due to ankylosing spondylitis that he has He was started with oral prednisone 40 mg once a day to see if it helps the pain Denies any palpitation and no shortness of breath 04/25 The patient was seen and examined. He has been feeling much better and denies any neck pain and low back pain Chest pain has resolved too He wants to go home Review of Systems Review of Systems: All systems reviewed and are unremarkable except as noted below Cardiovascular: no chest pain (2 out of 10 precordium) Musculoskeletal: + back pain (Has significant ankylosing spondylitis) Physical Exam Physical Exam: sitting at the age of the bed without any symptoms Constitutional: well developed and well nourished; no acute distress and not ill appearing Eyes: PERRL, conjunctivae normal, anicteric sclerae ENMT: external ear and nose normal, oropharynx normal Neck: trachea midline, no thyromegaly Respiratory: normal respiratory effort Auscultation: lungs clear to auscultation bilaterally Cardiovascular: Rate/Rhythm: regular rate and regular rhythm Heart Sounds: no murmur Gastrointestinal (Abdomen): Inspection/Auscultation: abdomen normal to inspection Percussion/Palpation: abdomen soft Musculoskeletal: Back pain and neck pain are better Neurologic: moves all extremities; no focal motor deficits Lymphatic: no cervical or axillary lymphadenopathy Results & Data Vital Signs (Past 12 Hours) Vital Signs Temp Pulse Resp BP BP Pulse Ox 04/25/19 10:39 36.3 C L 53 L 18 107/70 100 04/25/19 07:03 36.7 C 64 19 104/69 97 04/25/19 03:47 36.8 C 60 18 108/62 99 04/24/19 23:37 36.5 C 63 108/71 97 Medications Administered Current Inpatient Medications Acetaminophen (Tylenol) 650 mg PO Q4H PRN PRN Reason: Mild Pain (scale 1-3) Stop: 05/22/19 14:29 Last Admin: 04/25/19 07:20 Dose: 650 mg Documented by: Aspirin (Ecotrin Ectab) 81 mg PO [facility] Stop: 05/23/19 08:59 Last Admin: 04/25/19 10:15 Dose: 81 mg Documented by: Atorvastatin Calcium (Lipitor) 80 mg PO [facility] Stop: 05/23/19 08:59 Last Admin: 04/25/19 10:14 Dose: 80 mg Documented by: Enoxaparin Sodium (Lovenox) 40 mg SQ QAM [facility] Stop: 05/24/19 08:59 Last Admin: 04/25/19 10:16 Dose: 40 mg Documented by: Lisinopril (Zestril) 5 mg PO QAM [facility] Stop: 05/23/19 08:59 Last Admin: 04/25/19 10:15 Dose: 5 mg Documented by: Metoprolol Tartrate (Lopressor) 12.5 mg PO BID [facility] Stop: 05/22/19 20:59 Last Admin: 04/25/19 10:14 Dose: 12.5 mg Documented by: Nitroglycerin (Nitro-Bid 2%) 0.5 inch EXT Q6H [facility] Stop: 05/23/19 09:59 Last Admin: 04/25/19 10:49 Dose: Not Given Documented by: Nitroglycerin (Nitrostat) 0.4 mg SL PRN PRN PRN Reason: Chest Pain Stop: 05/23/19 15:09 Last Admin: 04/24/19 04:20 Dose: 0.4 mg Documented by: Ondansetron HCl (Zofran) 4 mg IV Q6H PRN PRN Reason: Nausea And Vomiting Stop: 05/22/19 14:29 Pantoprazole Sodium (Protonix) 40 mg PO QAM [facility] Stop: 05/23/19 08:59 Last Admin: 04/25/19 10:15 Dose: 40 mg Documented by: Polyethylene Glycol (Miralax Powder Packet) 17 gm PO DAILY [facility] Stop: 05/24/19 08:59 Last Admin: 04/25/19 10:16 Dose: 17 gm Documented by: Prednisone (Prednisone) 30 mg PO DAILY [facility] Stop: 05/25/19 10:44 Senna/Docusate Sodium ([facility]ot S) [facility] Stop: 05/24/19 08:59 Last Admin: 04/25/19 10:15 Dose: 1 tab Documented by: Ticagrelor (Brilinta) 90 mg PO BID [facility] Stop: 05/22/19 20:59 Last Admin: 04/25/19 10:15 Dose: 90 mg Documented by: (1) ST elevation (STEMI) myocardial infarction Involved coronary artery: unspecified coronary artery Qualified Code(s): I21.3 - ST elevation (STEMI) myocardial infarction of unspecified site
[2019-04-25] MEDS: predniSONE 5 MG TAB PO SCH (11:45)
--- NOTE | 2019-04-25 12:56 | Cardiology Progress Note ---
Date of Service April 25, 2019 Assessment & Plan (1) ST elevation (STEMI) myocardial infarction: (2) S/P right coronary artery (RCA) stent placement: (3) Dyslipidemia, goal LDL below 70: Patient may be discharged home from a cardiovascular perspective. Informed he may not return to to work until follow-up with cardiology evaluation in 1 week. Stressed importance of continuing dual antiplatelet therapy for minimum 6 months post percutaneous intervention (preferably 12 months). Adam nue other cardiovascular medications including AHMET inhibitor, beta-davis, and high intensity statin therapy. Thank you for allowing me to participate in the care of your patient. Cardiology will sign off at this time. Subjective Patient seen and examined at the bedside. Chest discomfort has resolved. Denies shortness of breath, palpitations, lightens, dizziness. Tolerating medications listed below. Requesting discharge if possible. Declines cardiac rehab. Review of Systems Review of Systems: All systems reviewed & are unremarkable except as noted in HPI & below Physical Exam Physical Exam: General: NAD, AAO x3, well nourished. HEENT: Normocephalic. Atraumatic. Conjunctiva pink, no scleral icterus. Neck: No carotid bruits, the carotid upstrokes are brisk. No JVD. No HJR Heart: Regular normal S-1 and S-2 no S-3 or S-4 gallop. No murmurs or rub appreciated. PMI is not displaced. No RV heave. Lungs: Clear bilateral without rales , rhonchi, or wheeze. Abdomen: Nor mal bowel sounds. Soft. Nontender. No masses or organomegaly. No abdominal bruits. Extremities: No clubbing, cyanosis, or edema. Pulses: radial=2/4, Dorsalis pedis =2/4, posterior tibial=2/4. Neuro: Cranial nerves grossly intact. No focal motor deficit. Results & Data Vital Signs (Past 12 Hours) Vital Signs Temp Pulse Resp BP BP Pulse Ox 04/25/19 10:39 36.3 C L 53 L 18 107/70 100 04/25/19 07:03 36.7 C 64 19 104/69 97 04/25/19 03:47 36.8 C 60 18 108/62 99 (1) ST elevation (STEMI) myocardial infarction Involved coronary artery: unspecified coronary artery Qualified Code(s): I21.3 - ST elevation (STEMI) myocardial infarction of unspecified site
--- NOTE | 2019-04-25 17:31 | Discharge Summary ---
Date of Service April 25, 2019 Admission HPI Per Admitting Provider Reason for Consultation: post op medical management Attending Physician: Leonardo Wolff MD History of Present Illness Pt is 58 y/o M with PMH ankylosing spondylitis, GERD, dyslipidemia, tobacco use seen in postop medical management consult s/p PCI and BRIE stent to RCA. Today patient had outpatient exercise stress echo for previous intermittent chest pain and back pain. Stress test with no reported inducible ischemia and pt able to perform exercise for 10 minutes. After stress test patient was walking down home when he developed anterior chest pain, left arm pain, diaphoresis and shortness of breath and had a EKG in clinic reported to show sinus rhythm with ST elevation inferior leads and V3-V6. In clinic patient was given 4 baby aspirin and 1 sublingual nitroglycerin and transferred to ER via EMS. Patient taken urgently to Gas Leak Inspector Helper and received 1 BRIE to RCA. Postop patient reports slight chest pain with no further SOB, arm pain, or diaphoresis. Denies fever/chills, N/V/D/C, MEDINA, dizziness, syncope, vision changes, neck pain, orthopnea, palpitations, cough, sore throat, choking, otalgia, rhinorrhea, abdominal pain, paresthesias, weakness, extremity weakness, extremity edema, rashes, urinary symptoms. Admission Exam Per Admitting Provider Physical Exam: General: no distress, WDWN Head: normocephalic, atraumatic Eyes: PERRL, EOM's intact, conjunctiva non-injected, anicteric ENT: normal inspection external ears, nose, mucous membranes moist Neck: supple, trachea midline Lungs: clear, no respiratory distress, no wheezing/rhonchi/rales CV: RRR, no murmur, no pretibial edema Abd: normal BS, soft, non-tender Ext: no cyanosis, no calf tenderness; right wrist with radial compression band in place, ROM fingers intact, fingers with sensation to light touch intact Neuro: A&O x 3, no focal deficits noted, normal affect Skin: warm, dry Principal Diagnosis ST elevation [place], status post cardiac cath with RCA stent placement,Ankylosing spondylitis Discharge Exam Constitutional well developed and well nourished; no acute distress and not ill appearing Eyes PERRL, conjunctivae normal, anicteric sclerae ENMT external ear and nose normal, oropharynx normal Neck trachea midline, no thyromegaly Respiratory normal respiratory effort Auscultation: lungs clear to auscultation bilaterally Cardiovascular Rate/Rhythm: regular rate and regular rhythm Heart Sounds: no murmur Gastrointestinal (Abdomen) Inspection/Auscultation: abdomen normal to inspection Percussion/Palpation: abdomen soft Neurologic moves all extremities; no focal motor deficits Lymphatic no cervical or axillary lymphadenopathy Discharge Data Allergies Allergy/AdvReac Type Severity Reaction Status Date / Time No Known Drug Allergies Allergy Unknown . Verified 04/22/19 13:10 Consultations 04/22/19 12:52 ED Decision to Admit Stat 04/22/19 14:36 Consult Cardiac Rehabilitation Routine 04/22/19 15:04 Consult Cardiology Routine 04/22/19 15:31 Consult Heel Caser Routine 04/22/19 15:32 Consult Case Management - Discharge Planning Routine Procedures Performed Operation Date: 04/22/19 12:40 Actual Procedures p Aspiration/PCI w/BRIE for Stemi - Zach Wolff MD s Cath, Left with Cors and Vent - Zach Wolff MD s Cineradiography w/Routine Exam - Zach Wolff MD Ordered Studies 04/22/19 12:37 CL Cath Imgs for PACS use only Stat Hospital Course (1) ST elevation (STEMI) myocardial infarction: Today patient had outpatient exercise stress echo with no reported inducible ischemia and pt able to perform exercise for 10 minutes. After stress test patient was walking down [place] and developed anterior CP, left arm pain, diaphoresis and SOB with EKG in clinic reported to show sinus rhythm with ST elevation inferior leads and leads V3-V6. In clinic had 324mg ASA and 1 SL nitro. From ER pt taken urgently to finishing lab technician. S/P PCI, [address] BRIE [address] RCA by [address] Wolff on 04/22 Status post right coronary artery stent placement Patient remains symptomatic of chest pain about 2 out of 10 on a scale of 0-10 Has been getting nitro and beta-davis Troponin has been improving, monitor is not showing any arrhythmia Appreciate cardiology input and recommendation Denies any more chest pain in the troponin has been trending down No arrhythmia in monitor We will transfer the patient to telemetry unit He remains stable without any chest pain Be discharged this afternoon (2) Renal insufficiency: Cr: 1.4. Baseline Cr:1.1 with GFR>60 Pt received contrast with cardiac cath Has been receiving intravenous fluid following cardiac cath Creatinine has improved to 1.15 Monitor electrolytes while in the hospital-creatinine has been normalized and phosphate has been replaced (3) Elevated glucose: Random glucose: 161 -Hemoglobin A1c is 5.1 (4) Ankylosing spondylitis: -Continue prednisone -Hold Diclofenac -Was started with oral prednisone 40 mg once a day -Glucocorticoids has been shown to be any beneficial with ankylosing spondylitis -We will discontinue in a day or 2 -He cannot use any NSAID use due to his heart condition -Rapid taper of prednisone and continue with 5 mg as before (5) Dyslipidemia: -Lipid panel in am: Total cholesterol is 182 minimally high triglyceride iat 170 -Atorvastatin started (6) GERD (gastroesophageal reflux disease): -Continue PPI (7) Tobacco use: Chews snuff -Tobacco cessation encouraged DVT Prophylaxis -Ambulate Clinically much better Discharge home this afternoon Total Time Total Time Spent Total Time Spent (In Minutes): 35 minutes Total Time Includes: Examination of the Patient, Discharge Planning, Medication Reconciliation and Communication With Other Providers Discharge Plan Discharge Items Patient Disposition: Home - Self-Care Reason For Visit: HEART ALERT Discharge Diagnosis: ST elevation [place], status post cardiac cath with RCA stent placement,Ankylosing spondylitis Condition on Discharge: Good Activity: Resume your previous activity Activity Comment: Take it easy until you are seen by rn clinical research as an outpatient Non-emergency contact: Primary Care Provider Call non-emergency contact if: you have any medication questions and your symptoms worsen Follow-up/Referrals: Samuel Hernandez DO [Epic Cadence Analyst] - 05/02/19 9:45 am Aria Kohler MD [Primary Care Provider] - 04/30/19 12:45 pm Diet: Heart Healthy Addtl Attending Provider Instructions: Please take precaution to avoid falls Take your cardiac medications as prescribed Pending Studies at Discharge: No Stand-Alone Forms: My [facility] [employer] Medications and DC Order Prescriptions: New Brilinta 90 mg Tablet 90 mg PO BID Qty: 60 RF: 0 atorvastatin 40 mg Tablet 80 mg PO QAM 30 Days Qty: 60 RF: 0 lisinopril [Zestril] 5 mg Tablet 5 mg PO QAM 30 Days Qty: 30 RF: 0 nitroglycerin [Nitrostat] 0.4 mg Tablet, Sublingual 0.4 mg sublingual PRN PRN (Reason: chest pain) Qty: 25 RF: 0 metoprolol tartrate 25 mg Tablet 12.5 mg PO BID 30 Days Qty: 30 RF: 0 prednisone 10 mg Tablet 30 mg PO UD Qty: 15 RF: 0 aspirin [Ecotrin Low Strength] 81 mg Tablet,Delayed Release (Dr/Ec) 81 mg PO QAM 30 Days Qty: 30 RF: 0 pantoprazole 40 mg Tablet,Delayed Release (Dr/Ec) 40 mg PO QAM 30 Days Qty: 30 RF: 0 Continued cyclobenzaprine 10 mg Tablet 10 mg PO TID PRN (Reason: Muscle Spasm) RF: 0 prednisone 5 mg tablet 5 mg PO DAILY RF: 0 Discontinued diclofenac sodium 75 mg tablet,delayed release (DR/EC) 75 mg PO BID RF: 0 prednisone 10 mg tablet 10 mg PO UD RF: 0 omeprazole 20 mg capsule,delayed release(DR/EC) 20 mg PO QAM RF: 0 Discharge Orders: Discharge Order (Routine); Ordered 04/25/19 Ordered By: Emile Gomes/Other Patient Handouts: Stent Coronary Admission Data Admit Date/Time: 04/22/19 13:27 Attending Provider: Emile Landa Admit Provider: Zach Wolff Primary Care Provider: Aria Kohler Other Providers: Emile Landa ; Zach Wolff ; Khoa Rhodes ; Samuel Hernandez ; Isabel Mcrae Other Interventions: Discharge Summary Assessment (RN) Last Done: 04/25/19 13:31 DC Date/Time DO NOT enter until pt leaves facility: 04/25/19 14:19
== END 2019-04-25 14:19 | disposition home or self-care (01) | DRG 247 ==
LOC: ED 12:31 → CC 12:56 → SUATTDRO 13:27 → 1E 13:27 → 2S 04-24 10:46
DX: N17.9 Acute kidney failure, unspecified; K21.9 Gastro-esophageal reflux disease without esophagitis; R73.9 Hyperglycemia, unspecified; Z79.52 Long term (current) use of systemic steroids; E78.5 Hyperlipidemia, unspecified; F17.220 Nicotine dependence, chewing tobacco, uncomplicated; I21.11 ST elevation (STEMI) myocardial infarction involving right coronary artery; Z82.49 Family history of ischemic heart disease and other diseases of the circulatory system; M45.9 Ankylosing spondylitis of unspecified sites in spine; F10.10 Alcohol abuse, uncomplicated; Z79.899 Other long term (current) drug therapy; Z79.1 Long term (current) use of non-steroidal anti-inflammatories (NSAID)